=== PATIENT | male | born 1985 | race African-American/Black ===

== ENCOUNTER 2017-02-27 08:25 | Emergency (ER) | payer SELFPAY ==
[~2017-02-27] VITALS: Ht 170.2 cm; Wt 95.0 kg
[2017-02-27 08:44] VITALS: BP 215/129; PULSE 115; RESP 20; TEMP 99.1; O2SAT 98
[2017-02-27] MEDS ORDERED: IBUP1TAB7 PO (09:33)
[2017-02-27] MEDS ORDERED: OSEL75 PO (09:33)
--- NOTE | 2017-02-27 09:33 | PD ---
HPI . Flu Chief Complaint: Cold / Flu Symptoms Time Seen by Provider: 09:29 Travel History International Travel<30 days: No Contact w/Intl Traveler<30days: No Traveled to known affect area: No History of Present Illness HPI This patient presents with a chief complaint of the flu. He reports the onset of symptoms 2 days ago. He describes myalgias, fever, malaise, poor appetite, headache and nausea. He states that flu medications are helping. His significant other was diagnosed with the flu 2 days ago. He reports that his symptoms are progressively improving. [facility] Past Medical History Immunizations Current: Yes Social History Alcohol Use: Yes Tobacco Use: Yes Substance Use: Yes (SMOKES MELITON AND MARIJUANA) Allergies-Medications (Allergen,Severity, Reaction): Coded Allergies: No Known Allergies (Verified Adverse Reaction, Unknown, 02/27/17) Reported Meds & Prescriptions Reported Meds & Active Scripts Active No Active Prescriptions or Reported Medications Review of Systems Except as stated in HPI: all other systems reviewed are Neg General / Constitutional: Positive: Fever, Chills HENT: Positive: Headaches, Rhinorrhea, Congestion Gastrointestinal: Positive: Nausea, Loss of Appetite Physical Exam Narrative GENERAL: Patient is awake and alert and does not appear to be in any acute distress. SKIN: Warm and dry with no rash or lesions. HEAD: Normocephalic/atraumatic. EYES: No conjunctival injection or drainage. ENT: Clear rhinorrhea. NECK: Supple. No adenopathy. CARDIOVASCULAR: Heart sounds are normal. RESPIRATORY: Lungs are clear with full air movement throughout. MUSCULOSKELETAL: Atraumatic. NEUROLOGICAL: Nonfocal. PSYCHIATRIC: Appropriate mood and affect. Data Data Last Documented VS Vital Signs Date Time Temp Pulse Resp B/P (MAP) Pulse Ox O2 Delivery O2 Flow Rate FiO2 02/27/17 09:15 Room Air 02/27/17 08:44 99.1 115 20 215/129 [phone] MDM Medical Decision Making Medical Screen Exam Complete: Yes Emergency Medical Condition: Yes Differential Diagnosis Differential diagnosis includes but is not limited to influenza, upper respiratory infection, bronchitis, pneumonia Narrative Course This patient presents with cold symptoms. He has had a positive exposure to the flu. I will treat him for the flu. Diagnosis Primary Impression: Influenza Patient Instructions: General Instructions, Influenza (DC) Scripts Ibuprofen (Ibuprofen) 800 Mg Tab 800 MG PO Q8H Y for Pain/Inflammation, #60 TAB 0 Refills Prov: Lyndsey Hood MD 02/27/17 Oseltamivir (Tamiflu) 75 Mg Cap 75 MG PO BID for Mgmt Viral Infection for 5 Days, #10 CAP 0 Refills Prov: Lyndsey Hood MD 02/27/17 Disposition: 01 DISCHARGE HOME Condition: Stable Lyndsey Hood MD Feb 27, 2017 09:33
[2017-02-27 10:01] VITALS: BP 172/82
== END 2017-02-27 10:02 | disposition home or self-care (01) ==
LOC: NEPD 08:25
DX: J11.1 Influenza due to unidentified influenza virus with other respiratory manifestations (principal)
CPT/HCPCS: 99283

== ENCOUNTER 2017-05-30 03:57 | Inpatient (IN) | payer SELFPAY ==
[2017-05-30] VITALS (13 sets, daily range): BP systolic 161–217; BP diastolic 93–145; PULSE 88–128; RESP 17–19; TEMP 97.9–98.6; O2SAT 96–99
[~2017-05-30] VITALS: Ht 170.2 cm; Wt 96.5 kg
[~2017-05-30 03:57] MED LIST: IBUP1TAB7 PO; OSEL75 PO
[2017-05-30] MEDS ORDERED: IODIXANOL 320 MG/ML 10 ML VIAL (for Rad CT) IVCONTRAST ONE (03:58)
--- NOTE | 2017-05-30 04:37 | PD ---
HPI Chief Complaint: Respiratory Symptoms Time Seen by Provider: 04:12 Travel History International Travel<30 days: No Contact w/Intl Traveler<30days: No Traveled to known affect area: No History of Present Illness HPI Patient is a 31-year-old male who 10 days ago had a virus that turned out to be the flu. He was in the ER but not treated and discharged home patient says he recovered he felt fine. However in the last 4 days he suddenly has shortness of breath. It is made worse when he exerts himself or runs of steps. He is on no medication at this time and he has not seen another doctor for this illness. He has not taken any medication for this illness Patient's past medical history is negative however on arrival he is tachycardic to 120 at rest and he is hypertensive 219/117 denies chest pain he just has a right-sided lateral pain which has been constant since the 4 days of shortness of breath. The pain is vague ache inside the lateral right chest. He did not take Tamiflu or any antibiotics, has not seen another MD for this Illness [facility] Past Medical History Medical History: Denies Significant Hx Diminished Hearing: No Immunizations Current: Yes Tetanus Vaccination: < 5 Years Influenza Vaccination: No Past Surgical History Surgical History: No Previous Surgery Social History Alcohol Use: Yes (weekends) Tobacco Use: No Substance Use: Yes (SMOKES MELITON AND MARIJUANA) Allergies-Medications (Allergen,Severity, Reaction): Coded Allergies: No Known Allergies (Verified Adverse Reaction, Unknown, 05/30/17) Reported Meds & Prescriptions Reported Meds & Active Scripts Active Review of Systems Except as stated in HPI: all other systems reviewed are Neg Cardiovascular: Positive: Chest Pain or Discomfort, Tachycardia Respiratory: Positive: Shortness of Breath Physical Exam Narrative GENERAL: Patient is slightly diaphoretic he is tachycardic to 120 at rest SKIN: Warm and dry. Slightly diaphoretic on his forehead HEAD: Atraumatic. Normocephalic. EYES: Pupils equal and round. No scleral icterus. No injection or drainage. ENT: No nasal bleeding or discharge. Mucous membranes pink and moist. NECK: Trachea midline. No JVD. CARDIOVASCULAR: tachycardiac at rest 120 sinus tach RESPIRATORY: No accessory muscle use. Patient has diffuse wheezing in the right lung lower and middle lobe area ,, Left lung -->minimal expiratory wheeze in the left upper lung. MUSCULOSKELETAL: Extremities without clubbing, cyanosis, or edema. No obvious deformities. NEUROLOGICAL: Awake and alert. No obvious cranial nerve deficits. Motor grossly within normal limits. Five out of 5 muscle strength in the arms and legs. Normal speech. PSYCHIATRIC: Appropriate mood and affect; insight and judgment normal. Data Data Last Documented VS Orders Orders Complete Blood Count With Diff (05/30/17 04:34) Comprehensive Metabolic Panel (05/30/17 04:34) Troponin I (05/30/17 04:34) Lipase (05/30/17 04:34) D-Dimer (05/30/17 04:34) Ct Pulmonary Angiogram (05/30/17 ) Electrocardiogram (05/30/17 ) Sodium Chlor 0.9% 1000 Ml Inj (Ns 1000 M (05/30/17 05:45) Sodium Chlor 0.9% 1000 Ml Inj (Ns 1000 M (05/30/17 05:45) Iodixanol 320 Inj (Rad Ct) (Visipaque 32 (05/30/17 03:58) Levofloxacin 750 Mg Premix Inj (Levaquin (05/30/17 06:30) Ipratropium Neb (Atrovent Neb) (05/30/17 06:30) Labetalol Inj (Trandate Inj) (05/30/17 06:30) Aspirin Chew (Aspirin Chew) (05/30/17 06:30) Influenzae A/B Antigen (05/30/17 06:29) Vital Signs (Adult) Q4H (05/30/17 06:26) Senior Procurement Manager / Telemetry .CONTINUOUS (05/30/17 06:26) Diet Heart Healthy (05/30/17 Breakfast) Sodium Chloride 0.9% Flush (Ns Flush) (05/30/17 06:30) Sodium Chloride 0.9% Flush (Ns Flush) (05/30/17 09:00) Basic Metabolic Panel (Bmp) (05/31/17 06:00) Complete Blood Count With Diff (05/31/17 06:00) Creatine Kinase (Cpk) (05/30/17 10:30) Creatine Kinase (Cpk) (05/30/17 16:30) Troponin I (05/30/17 10:30) Troponin I (05/30/17 16:30) Electrocardiogram (05/30/17 10:30) Electrocardiogram (05/30/17 16:30) Case Management Consult (05/30/17 06:26) Naloxone Inj (Narcan Inj) (05/30/17 06:30) Inpatient Certification (05/30/17 ) Influenzae A/B Antigen (05/30/17 06:26) Labetalol Inj (Trandate Inj) (05/30/17 06:30) Methylprednisolone So Succ Inj (Solumedr (05/30/17 06:45) Oseltamivir (Tamiflu) (05/30/17 09:00) Albuterol-Ipratropium Neb (Duoneb Neb) (05/30/17 10:00) Albuterol-Ipratropium Neb (Duoneb Neb) (05/30/17 06:45) Admit Order (Ed Use Only) (05/30/17 06:37) CKMB (05/30/17 10:25) CKMB% (05/30/17 10:25) CKMB (05/30/17 16:16) CKMB% (05/30/17 16:16) Labs Laboratory Tests Test 05/30/17 04:30 White Blood Count 7.3 TH/MM3 Red Blood Count 5.00 MIL/MM3 Hemoglobin 14.8 GM/DL Hematocrit 43.5 % Mean Corpuscular Volume 87.0 FL Mean Corpuscular Hemoglobin 29.5 PG Mean Corpuscular Hemoglobin Concent 33.9 % Red Cell Distribution Width 13.7 % Platelet Count 376 TH/MM3 Mean Platelet Volume 8.0 FL Neutrophils (%) (Auto) 67.6 % Lymphocytes (%) (Auto) 21.9 % Monocytes (%) (Auto) 7.9 % Eosinophils (%) (Auto) 1.9 % Basophils (%) (Auto) 0.7 % Neutrophils # (Auto) 5.0 TH/MM3 Lymphocytes # (Auto) 1.6 TH/MM3 Monocytes # (Auto) 0.6 TH/MM3 Eosinophils # (Auto) 0.1 TH/MM3 Basophils # (Auto) 0.0 TH/MM3 CBC Comment DIFF FINAL Differential Comment D-Dimer Quantitative (PE/DVT) 1.86 MG/L FEU Blood Urea Nitrogen 23 MG/DL Creatinine 1.87 MG/DL Random Glucose 92 MG/DL Total Protein 7.7 GM/DL Albumin 3.6 GM/DL Calcium Level 8.9 MG/DL Alkaline Phosphatase 92 U/L Aspartate Amino Transf (AST/SGOT) 91 U/L Alanine Aminotransferase (ALT/SGPT) 106 U/L Total Bilirubin 0.4 MG/DL Sodium Level 141 MEQ/L Potassium Level 3.8 MEQ/L Chloride Level 105 MEQ/L Carbon Dioxide Level 25.3 MEQ/L Anion Gap 11 MEQ/L Estimat Glomerular Filtration Rate 52 ML/MIN Troponin I 0.56 NG/ML B-Type Natriuretic Peptide 499 PG/ML Lipase 150 U/L MDM Medical Decision Making Medical Screen Exam Complete: Yes Emergency Medical Condition: Yes Differential Diagnosis FLU vs PNA vs PE vs post Flu viral suprainfection of his right lung boateng vs PCP PNA vs Fungal infection other Narrative Course pt is tachycardic at rest and SOB and Right chest pain for 4 days < mother had DVT I CTA for PE and find severe ground glass like PNA of right lung and Levaquin and NEB and admit for close care of severe symptomatic PNA , Critical Care Narrative 30 minutes pulmonary management from severe post flu PNA and resp manangemnt Diagnosis Primary Impression: Pneumonia and influenza Admitting Information Admitting Physician Requests: Arsalan Mendosa MD May 30, 2017 04:37
[2017-05-30 04:59] LABS: BASOPHIL % 0.7 % (0.0-2.0); EOSINOPHIL # 0.1 TH/MM3 (0-0.4); EOSINOPHIL % 1.9 % (0.0-4.0); HEMATOCRIT 43.5 % (39.0-51.0); HEMOGLOBIN 14.8 GM/DL (13.0-17.0); LYMPH % 21.9 % (9.0-44.0); LYMPHOCYTE # 1.6 TH/MM3 (1.0-4.8); MEAN CORPUSCULAR HEMOGLOBIN 29.5 PG (27.0-34.0); MEAN CORPUSCULAR HGB CONC 33.9 % (32.0-36.0); MONO % 7.9 % (0.0-8.0); MONOCYTE # 0.6 TH/MM3 (0-0.9); NEUT % 67.6 % (16.0-70.0); PLATELET COUNT 376 TH/MM3 (150-450); RED CELL DISTRIBUTION WIDTH 13.7 % (11.6-17.2); WHITE BLOOD COUNT 7.3 TH/MM3 (4.0-11.0)
[2017-05-30 05:25] LABS: ALBUMIN 3.6 GM/DL (3.4-5.0); ALT (GPT) 106 U/L (12-78); AST (GOT) 91 U/L (15-37); BICARBONATE 25.3 MEQ/L (21.0-32.0); BLOOD UREA NITROGEN 23 MG/DL (7-18); CALCIUM 8.9 MG/DL (8.5-10.1); CHLORIDE 105 MEQ/L (98-107); CREATININE 1.87 MG/DL (0.60-1.30); GLOMERULAR FILTRATION RATE 52 ML/MIN (>89); GLUCOSE,RANDOM 92 MG/DL (74-106); SODIUM (NA) 141 MEQ/L (136-145)
[2017-05-30 05:29] LABS: ALKALINE PHOSPHATASE 92 U/L (45-117); TOTAL BILIRUBIN ADULT 0.4 MG/DL (0.2-1.0); TOTAL PROTEIN 7.7 GM/DL (6.4-8.2); TROPONIN I 0.56 NG/ML (0.02-0.05)
[2017-05-30] MEDS ORDERED: SODIUM CHLOR 0.9% 1000 ML INJ 1,000 ML IV ONE ×2 (05:45)
--- NOTE | 2017-05-30 06:08 | RADRPT ---
EXAM DATE/TIME: 05/30/2017 05:52 [place] COMPARISON: No previous studies available for comparison. INDICATIONS : Short of breath for four days. IV CONTRAST: 50 cc Visipaque (iodixanol) IV RADIATION DOSE: 21.50 CTDIvol (mGy) MEDICAL HISTORY : Hypertension. SURGICAL HISTORY : None. ENCOUNTER: Initial ACUITY: 4 - 6 days PAIN SCALE: 0/10 LOCATION: chest TECHNIQUE: Volumetric scanning of the chest was performed using a pulmonary embolism protocol MIP images were re constructed. Using automated exposure control and adjustment of the mA and/or kV according to patien t size, radiation dose was kept as low as reasonably achievable to obtain optimal diagnostic quality images. DICOM format image data is available electronically for review and comparison. Follow-up recommendations for detected pulmonary nodules are based at a minimum on nodule size and pa tient risk factors according to Fleischner Society Guidelines. FINDINGS: There are scattered bilateral groundglass infiltrates. There are no effusions. There is a small peric ardial effusion. There is no evidence for pulmonary embolism. 1.7 cm short axis subcarinal node, 1.4 cm right paratracheal lymph node, 9 mm pretracheal node subcentimeter short axis bilateral hilar lymp h nodes. Osseous structures are intact. CONCLUSION: 1. Bilateral groundglass infiltrates are noted bilaterally including several groundglass nodular opac ities measuring up to 2.6 cm and the right lung. Infectious etiology is favored. 2. No evidence for pulmonary embolism. 3. Small pericardial effusion. 4. Mediastinal and bilateral hilar adenopathy. 5. CT chest is recommended after appropriate clinical therapy in 3 months time to ensure resolution. Deni Guido MD on May 30, 2017 at 6:03 Board Certified Radiologist. This report was verified electronically.
[2017-05-30] MEDS ORDERED: NALOXONE HCL 0.4 MG/ML AMP IV PUSH PRN ×2 (06:30→10:45)
[2017-05-30] MEDS ORDERED: SODIUM CHLORIDE 0.9% FLUSH 10 ML FLUSH IV FLUSH PRN ×2 (06:30→10:45)
[2017-05-30] MEDS ORDERED: RESP: IPRATROPIUM 0.5 MG/2.5 ML NEB NEB ONE (06:30)
[2017-05-30] MEDS ORDERED: LABETALOL HCL 100 MG/20 ML VIAL IV PUSH ONE (06:30)
[2017-05-30] MEDS ORDERED: ASPIRIN 81 MG CHEW TAB CHEW ONE (06:30)
[2017-05-30] MEDS ORDERED: LEVOFLOXACIN 750 MG PREMIX INJ 150 ML IV ONE (06:30)
[2017-05-30] MEDS ORDERED: methylPREDNISolone SOD SUCC 125 MG/2 ML VIAL IV PUSH ONE (06:45)
[2017-05-30] MEDS ORDERED: RESP: ALBUTEROL 2.5 MG/IPRATROPIUM 0.5 MG NEB (PRN) NEB ×2 (06:45→10:45)
[2017-05-30] MEDS: RESP: ALBUTEROL 2.5 MG/IPRATROPIUM 0.5 MG NEB (SCH) NEB ×3 (07:59→21:36)
[2017-05-30] MEDS ORDERED: SODIUM CHLORIDE 0.9% FLUSH 10 ML FLUSH IV FLUSH SCH (09:00)
[2017-05-30] MEDS ORDERED: OSELTAMIVIR PHOSPHATE 75 MG CAP PO SCH (09:00)
[2017-05-30] MEDS ORDERED: MAGNESIUM HYDROXIDE SUSP 30 ML CUP PO PRN (10:45)
[2017-05-30] MEDS ORDERED: ONDANSETRON HCL 4 MG/2 ML VIAL IVP PRN (10:45)
[2017-05-30] MEDS ORDERED: ACETAMINOPHEN 325 MG TAB PO PRN (10:45)
[2017-05-30] MEDS ORDERED: LACTULOSE SYRUP 20 GM/30 ML CUP PO PRN (10:45)
[2017-05-30] MEDS ORDERED: SENNOSIDES 8.6 MG TAB PO PRN (10:45)
[2017-05-30] MEDS ORDERED: BISACODYL 10 MG SUPP RECTAL PRN (10:45)
[2017-05-30 11:02] LABS: TROPONIN I 0.54 NG/ML (0.02-0.05)
[2017-05-30] MEDS: ENOXAPARIN SODIUM 30 MG/0.3 ML SYRINGE SQ SCH (11:52)
[2017-05-30] MEDS ORDERED: LINEZOLID 600 MG PREMIX 300 ML IV SCH (13:00)
[2017-05-30] MEDS: LABETALOL HCL 100 MG/20 ML VIAL IV PUSH PRN ×4 (13:19→21:41)
--- NOTE | 2017-05-30 14:27 | EKG ---
Date Performed: 05/30/2017 Time Performed: 05:04:41 PTAGE: 31 years EKG: SINUS TACHYCARDIA LEFT ATRIAL ENLARGEMENT S1-S2-S3 PATTERN, CONSISTENT WITH PULMONARY DISEA SE, RVH, OR NORMAL VARIANT POSSIBLE RIGHT VENTRICULAR CONDUCTION DELAY POSSIBLE LEFT VENTRICULAR HYPE RTROPHY MODERATE T-WAVE ABNORMALITY, CONSIDER ANTERIOR ISCHEMIA ABNORMAL ECG PREVIOUS TRACING : 01/14/2015 04.17 Voltage has increased since prior tracing with nonspecific ST-T wave changes. Clinical correlation is recommended. DOCTOR: Ez Porras Interpretating Date/Time 05/30/2017 14:26:25
--- NOTE | 2017-05-30 14:56 | EKG ---
Date Performed: 05/30/2017 Time Performed: 10:22:21 PTAGE: 31 years EKG: Sinus rhythm LEFT ATRIAL ENLARGEMENT POSSIBLE RIGHT VENTRICULAR CONDUCTION DELAY POSSIBLE LEFT VENTRICULAR HYPERT ROPHY ST DEVIATION AND MODERATE T-WAVE ABNORMALITY, CONSIDER ANTERIOR ISCHEMIA ST DEVIATION AND MODER ATE T-WAVE ABNORMALITY, CONSIDER INFERIOR ISCHEMIA ABNORMAL ECG PREVIOUS TRACING : 05/30/2017 05.04 Since the prior tracing, there has been no significant barrera DOCTOR: Ez Porras Interpretating Date/Time 05/30/2017 14:48:49
--- NOTE | 2017-05-30 15:54 | HHI.HP ---
[facility] No Primary Care Physician Admission Diagnosis severe bronchitis infiltrate , pericardiatis Diagnoses: Chief Complaint: Shortness of breath Travel History International Travel<30 Days: No Contact w/Intl Traveler <30 Da: No Traveled to Known Affected Are: No Sepsis Criteria SIRS Criteria (2 or more): Heart rate over 90 History of Present Illness Mr. Horne is a pleasant 31 year old male with no significant medical history who presents to the emergency department today due to to worsening shortness of breath. For the last month or so, patient has been experiencing shortness of breath even with short distance walking. He also reports bilateral leg swelling and orthopnea. He cannot sleep in bed flat due to dyspnea. He denies any chest pain. However he has been experiencing right upper quadrant abdominal pain for the last 1 week or so. He reports cough with sung colored sputum production. No fever or chills. No nausea vomiting or diaphoresis. No nighttime sweats. No weight loss. Denies any changes in bowel or bladder habit. Further discussion reveals that he likely has had undiagnosed, untreated hypertension for a long time. He also admit to not eating well. Of note, patient had flu in February. CT PE study does indicate possibility of infectious etiology for nodular ground glass opacity. On arrival, HR 128, RR 18 , BP 208/145, 97% on room air. Review of Systems Except as stated in HPI: all other systems reviewed are Neg Past Family Social History Past Medical History Recent flu in Feb 2017 Undiagnosed hypertension Past Surgical History No previous surgery. Reported Medications Denies taking any medications on a regular basis. Allergies: Coded Allergies: No Known Allergies (Verified Adverse Reaction, Unknown, 05/30/17) Family History Mother - CHF. Social History Patient denies to me using any tobacco or illicit drugs. He admits to drinking on the weekend. He works in [employer]. Physical Exam Vital Signs Vital Signs Date Time Temp Pulse Resp B/P (MAP) Pulse Ox O2 Delivery O2 Flow Rate FiO2 05/30/17 12:45 05/30/17 12:13 98.3 88 17 161/93 (115) 97 Room Air 05/30/17 09:15 92 17 169/96 (120) 96 Room Air 05/30/17 07:25 92 19 168/97 (120) 96 Room Air 05/30/17 06:55 97 18 189/126 (147) 97 Room Air 05/30/17 04:21 121 18 217/129 (158) 97 Room Air 05/30/17 03:58 97.9 128 18 208/145 (166) 97 Room Air Physical Exam GENERAL: This is a well-nourished, well-developed patient, in no apparent distress. SKIN: No rashes, ecchymoses or lesions. Warm and dry. HEAD: Atraumatic. Normocephalic. No temporal or scalp tenderness. EYES: Pupils equal round and reactive. No injection or drainage. ENT: Nose without bleeding, purulent drainage or septal hematoma. Airway patent. NECK: Trachea midline. No lymphadenopathy. Supple, nontender, no meningeal signs. CARDIOVASCULAR: Regular rate and rhythm without murmurs, gallops, or rubs. No JVD. RESPIRATORY: Diminished sound in bibasilar areas. Breath sounds equal bilaterally. No wheezes, rales, or rhonchi. GASTROINTESTINAL: Abdomen soft, non-tender, nondistended. No guarding. MUSCULOSKELETAL: Extremities without clubbing, cyanosis. Low ext 1+ edema. NEUROLOGICAL: Awake and alert. Cranial nerves II through XII intact. No focal neurological deficits. Normal speech. Laboratory Laboratory Tests Test 05/30/17 04:30 05/30/17 10:25 White Blood Count 7.3 Red Blood Count 5.00 Hemoglobin 14.8 Hematocrit 43.5 Mean Corpuscular Volume 87.0 Mean Corpuscular Hemoglobin 29.5 Mean Corpuscular Hemoglobin Concent 33.9 Red Cell Distribution Width 13.7 Platelet Count 376 Mean Platelet Volume 8.0 Neutrophils (%) (Auto) 67.6 Lymphocytes (%) (Auto) 21.9 Monocytes (%) (Auto) 7.9 Eosinophils (%) (Auto) 1.9 Basophils (%) (Auto) 0.7 Neutrophils # (Auto) 5.0 Lymphocytes # (Auto) 1.6 Monocytes # (Auto) 0.6 Eosinophils # (Auto) 0.1 Basophils # (Auto) 0.0 CBC Comment DIFF FINAL Differential Comment D-Dimer Quantitative (PE/DVT) 1.86 Blood Urea Nitrogen 23 Creatinine 1.87 Random Glucose 92 Total Protein 7.7 Albumin 3.6 Calcium Level 8.9 Alkaline Phosphatase 92 Aspartate Amino Transf (AST/SGOT) 91 Alanine Aminotransferase (ALT/SGPT) 106 Total Bilirubin 0.4 Sodium Level 141 Potassium Level 3.8 Chloride Level 105 Carbon Dioxide Level 25.3 Anion Gap 11 Estimat Glomerular Filtration Rate 52 Troponin I 0.56 0.54 Lipase 150 Total Creatine Kinase 403 Creatine Kinase MB 3.1 Creatine Kinase MB % 0.8 Date/Time Source Procedure Growth Status 05/30/17 07:20 Nasal Aspirate Influenza Types A,B Antigen (PARK) - Final NEGATIVE FOR FLU A AND B ANTIGEN.... Complete Result Diagram: 05/30/17 0430 05/30/17 [address] Angiography 05/30/17 0000 Signed Impressions: Service Date/Time: May 05:52 - CONCLUSION: 1. Bilateral groundglass infiltrates are noted bilaterally including several groundglass nodular opacities measuring up to 2.6 cm and the right lung. Infectious etiology is favored. 2. No evidence for pulmonary embolism. 3. Small pericardial effusion. 4. Mediastinal and bilateral hilar adenopathy. 5. CT chest is recommended after appropriate clinical therapy in 3 months time to ensure resolution. Deni Guido MD Capmarai VTE Risk Assessment Caprini VTE Risk Assessment: Mod/High Risk (score >= 2) Caprini Risk Assessment Model Point Value = 1 Point Value = 2 Point Value = 3 Point Value = 5 Age 41-60 Minor surgery BMI > 25 kg/m2 Swollen legs Varicose veins or History of unexplained or recurrent spontaneous Oral contraceptives or hormone replacement Sepsis (< 1 month) Serious lung disease, including pneumonia (< 1 month) Abnormal pulmonary function Acute myocardial infarction Congestive heart failure (< 1 month) History of inflammatory bowel disease Medical patient at bed rest Age 61-74 Arthroscopic surgery Major open surgery (> 45 min) Laparoscopic surgery (> 45 min) Malignancy Confined to bed (> 72 hours) Immobilizing plaster cast Central venous access Age >= 75 History of VTE Family history of VTE Factor V Leiden Prothrombin [id number] Lupus anticoagulant Anticardiolipin antibodies Elevated serum homocysteine Heparin-induced thrombocytopenia Other congenital or acquired thrombophilia Stroke (< 1 month) Elective arthroplasty Hip, pelvis, or leg fracture Acute spinal cord injury (< 1 month) Prophylaxis Regimen Total Risk Factor Score Risk Level Prophylaxis Regimen 0-1 Low Early ambulation 2 Moderate Order ONE of the following: *Sequential Compression Device (SCD) *Heparin 5000 units SQ BID 3-4 Higher Order ONE of the following medications: *Heparin 5000 units SQ TID *Enoxaparin/Lovenox 40 mg SQ daily (WT < 150 kg, CrCl > 30 mL/min) *Enoxaparin/Lovenox 30 mg SQ daily (WT < 150 kg, CrCl > 10-29 mL/min) *Enoxaparin/Lovenox 30 mg SQ BID (WT < 150 kg, CrCl > 30 mL/min) AND/OR *Sequential Compression Device (SCD) 5 or more Highest Order ONE of the following medications: *Heparin 5000 units SQ TID (Preferred with Epidurals) *Enoxaparin/Lovenox 40 mg SQ daily (WT < 150 kg, CrCl > 30 mL/min) *Enoxaparin/Lovenox 30 mg SQ daily (WT < 150 kg, CrCl > 10-29 mL/min) *Enoxaparin/Lovenox 30 mg SQ BID (WT < 150 kg, CrCl > 30 mL/min) AND *Sequential Compression Device (SCD) Assessment and Plan Problem List: (1) CHF (congestive heart failure) ICD Code: I50.9 - Heart failure, unspecified (2) NSTEMI (non-ST elevated myocardial infarction) ICD Code: I21.4 - Non-ST elevation (NSTEMI) myocardial infarction (3) Acute kidney injury ICD Code: N17.9 - Acute kidney failure, unspecified (4) Hypertension ICD Code: I10 - Essential (primary) hypertension (5) Pneumonia ICD Code: J18.9 - Pneumonia, unspecified organism Assessment and Plan Mr. Horne is a pleasant 31-year-old male with no significant medical history presents to the emergency department due to one-month long shortness of breath, orthopnea, leg swelling. He complains of cough with sung sputum production. No fever or chills. No night sweats, weight loss. CT PE study indicates groundglass opacity with nodular density likely infectious etiology. Patient's clinical symptoms are consistent with new onset congestive heart failure. New onset congestive heart failure likely systolic. NSTEMI type II - likely due to dyspnea which is due to CHF, acute kidney injury. Troponins are 0.56, 0.54, 0.50. - BNP added later - BNP is 499. - Will consult cardiology. - Start Diuresis with Lasix 40mg IV BID - Will consider beta semaj, ABEL inhibitor once patient gets diuresis. - In the acute heart failure setting, starting Beta semaj must be done with caution. - We will also hold off initiating ABEL inhibitory due to BETSY. - Echocardiogram pending. - We may consider Carvedilol 6.25mg BID and Lisinopril 10mg Qday when plausible to start. Hypertension - Start amlodipine 5 mg daily. Titrate up as needed. - Lasix 40mg IV BID will also help with BP. Acute kidney injury - Creatinine 1.87 on admission. Previously 1.0 in 2014. - Possibly due to hypertensive nephropathy. Although Cardiorenal syndrome is a possibility. - With diuresis we may expect better perfusion to the kidneys. - If BETSY is not improved by 05/31/2017, consider renal US and nephrology consult. Possible pneumonia - CT images reviewed by me - shows ground glass opacity. Left nodular density appreciated. - Will d/c Tamiflu. Patient's flu screen is negative. He had Flu in 2016 - Initially, MRSA pneumonia post flu was suspected. CAP appears to be more likely. D/C Zyvox. - Will continue Levaquin 750 Qday - pharmacy to adjust dose. - DuoNeb PRN. Supplemental O2 PRN. Full code. Lovenox. Telemetry. Physician Certification 2 Midnight Certification Type: Admission for Inpatient Services Order for Inpatient Services The services are ordered in accordance with Medicare regulations or non- Medicare payer requirements, as applicable. In the case of services not specified as inpatient-only, they are appropriately provided as inpatient services in accordance with the 2-midnight benchmark. Estimated LOS (days): 3 days is the estimated time the patient will need to remain in the hospital, assuming treatment plan goals are met and no additional complications. Post-Hospital Plan: Home Genesis Hendrickson DO May 30, 2017 15:54
[2017-05-30] MEDS ORDERED: amLODIPine BESYLATE 5 MG TAB PO ONE (16:00)
[2017-05-30 17:11] LABS: TROPONIN I 0.5 NG/ML (0.02-0.05)
[2017-05-30] MEDS: FUROSEMIDE 40 MG/4 ML VIAL IV PUSH SCH (18:07)
[2017-05-30] MEDS: ATORVASTATIN 40 MG TAB PO SCH (20:57)
[2017-05-30] MEDS: SODIUM CHLORIDE 0.9% FLUSH 10 ML FLUSH IV FLUSH SCH (20:57)
[2017-05-31] VITALS (25 sets, daily range): BP systolic 149–178; BP diastolic 92–112; PULSE 82–99; RESP 16–20; TEMP 96.9–98.1; O2SAT 94–100
[2017-05-31] MEDS: RESP: ALBUTEROL 2.5 MG/IPRATROPIUM 0.5 MG NEB (SCH) NEB ×4 (04:02→21:09)
[2017-05-31] MEDS: LABETALOL HCL 100 MG/20 ML VIAL IV PUSH PRN ×5 (04:17→11:54)
--- NOTE | 2017-05-31 05:47 | MB ---
cc: DIXIE BERRIOS M.D. DATE OF CONSULTATION 05/30/2017 HISTORY Evelio is a very pleasant 31-year-old young man who presents to the ER with chief complaint of chest pain, associated with shortness of breath. Per the ER chart he was noted to have had the "flu" 10 days prior to admission. At that time he had tachycardia with a heart rate of 120, blood pressure is 219/117 in the ER. Otherwise he denies any fevers, chills, cough, GI or bleeding, paroxysmal nocturnal dyspnea, orthopnea, syncope or dizziness. PAST MEDICAL HISTORY As per History of Present Illness. SOCIAL HISTORY He admits to drinking alcohol and smoking Sweta and marijuana. Denies tobacco use. ALLERGIES None. MEDICATIONS IN THE HOSPITAL 1. Amlodipine 5 mg daily. 2. Levofloxacin 750 daily. 3. Aspirin 81 mg daily. 4. Atorvastatin 40 mg at bedtime. 5. Lasix 40 IV b.i.d. 6. Lovenox 30 subcu q.24 hours. PHYSICAL EXAMINATION VITAL SIGNS: Currently blood pressure 163/118, pulse 95, respiratory rate 18, temperature 98.2, sats 98% on room air. GENERAL: He is alert and oriented x 3, in no acute distress. NECK: Supple. No JVD, no bruit. CARDIOVASCULAR: S1, S2. No murmurs, rubs, or gallops. LUNGS: Clear to auscultation bilaterally. ABDOMEN: Soft, nontender, nondistended with positive bowel sounds. EXTREMITIES: No lower extremity edema. LABORATORY DATA White count 7.3, hemoglobin 14.8, hematocrit 43.5, platelet count 376. INR not done. Sodium 141, potassium 3.8, chlorine 105, bicarb 25.3, BUN 23, creatinine 1.87, AST of 91, ALT 106. Troponin is 0.56 followed by 0.54 and 0.50. BNP is 499. CT ANGIO OF THE CHEST I cannot pull the CT report from the computer. EKG On admission shows sinus tachycardia at 117 beats per minute, nonspecific ST-T wave changes. Repeat EKG showed normal sinus rhythm at 93 beats per minute, T-wave inversion in V3, V2, V4. DIAGNOSES 1. Non-STEMI. 2. Hypertension. 3. Acute renal failure. 4. Tobacco abuse. 5. Polysubstance abuse. 6. Decompensated congestive heart failure. DISCUSSION Clinically, I suspect that his troponin elevation is secondary to severe hypertension. However, I cannot completely rule out a primary obstructive event causing his ischemia. Obviously he has a high-risk presentation due to the acute renal failure, decompensated congestive heart failure, severe hypertension, non-STEMI. At this point in time we will reevaluate in labs in the a.m. If his creatinine is normal, would consider doing a left heart catheterization. Also get a urine drug screen. Agree with aspirin 81 mg daily, atorvastatin 40 at bedtime. MD LUANA Vasquez/GUANAKITO /7:14 PM /5:30 AM
[2017-05-31 07:48] LABS: AUTOMATED NEUTROPHIL # 12.2 TH/MM3 (1.8-7.7); BASOPHIL % 0.1 % (0.0-2.0); LYMPH % 7.2 % (9.0-44.0); MEAN CELL VOLUME 88.2 FL (80.0-100.0); MEAN CORPUSCULAR HEMOGLOBIN 29.5 PG (27.0-34.0); MEAN CORPUSCULAR HGB CONC 33.4 % (32.0-36.0); MEAN PLATELET VOLUME 8.3 FL (7.0-11.0); MONO % 8.5 % (0.0-8.0); MONOCYTE # 1.2 TH/MM3 (0-0.9); NEUT % 84.2 % (16.0-70.0); PLATELET COUNT 305 TH/MM3 (150-450); RED BLOOD COUNT 4.42 MIL/MM3 (4.50-5.90); RED CELL DISTRIBUTION WIDTH 14.3 % (11.6-17.2); WHITE BLOOD COUNT 14.5 TH/MM3 (4.0-11.0)
[2017-05-31 07:58] LABS: BICARBONATE 23.8 MEQ/L (21.0-32.0); BLOOD UREA NITROGEN 22 MG/DL (7-18); CALCIUM 8.6 MG/DL (8.5-10.1); CHLORIDE 108 MEQ/L (98-107); CREATININE 1.56 MG/DL (0.60-1.30); GLOMERULAR FILTRATION RATE 64 ML/MIN (>89); GLUCOSE,RANDOM 98 MG/DL (74-106); SODIUM (NA) 142 MEQ/L (136-145)
[2017-05-31 07:59] LABS: CHOLESTEROL 116 MG/DL (120-200); TRIGLYCERIDES 73 MG/DL (42-150)
[2017-05-31 08:02] LABS: CHOLESTEROL/ HDL RATIO 4.01 RATIO; HDL CHOLESTEROL 28.9 MG/DL (40.0-60.0); LDL CHOLESTEROL 73 MG/DL (0-99)
[2017-05-31] MEDS: FUROSEMIDE 40 MG/4 ML VIAL IV PUSH SCH ×2 (08:05→17:19)
[2017-05-31] MEDS: amLODIPine BESYLATE 5 MG TAB PO SCH (08:05)
[2017-05-31] MEDS: ASPIRIN EC 81 MG TABEC PO SCH (08:05)
[2017-05-31] MEDS: LEVOFLOXACIN 750 MG TAB PO SCH (08:05)
[2017-05-31] MEDS: SODIUM CHLORIDE 0.9% FLUSH 10 ML FLUSH IV FLUSH SCH ×2 (08:06→20:42)
--- NOTE | 2017-05-31 08:50 | RADRPT ---
EXAM DATE/TIME: 05/31/2017 08:17 [facility] COMPARISON: No previous studies available for comparison. INDICATIONS : Right upper quadrant pain. MEDICAL HISTORY : Right upper quadrant pain. SOB. Undiagnosed hypertension. SURGICAL HISTORY : None. ENCOUNTER: Initial ACUITY: 1 day PAIN SCORE: 3/10 LOCATION: Right upper quadrant MEASUREMENTS: LIVER: 17.8 cm length COMMON DUCT: 3 mm RIGHT KIDNEY: 10.6 x 5.6 x 3.8 cm FINDINGS: LIVER: Mild diffuse increased hepatic echogenicity without volume loss, focal mass or intrahepatic ductal di latation. COMMON DUCT: No intraluminal mass or stone visualized. GALLBLADDER: Contains no stones, demonstrates no wall thickening or pericholecystic fluid. PANCREAS: The visualized portions are within normal limits. RIGHT KIDNEY: No evidence of hydronephrosis, stone, or mass. CONCLUSION: 1. Mild diffusely increased hepatic echogenicity without volume loss consistent with hepatic steatosi s versus medical liver disease. 2. Otherwise, unremarkable right quadrant ultrasound examination. Specifically, no cholelithiasis or evidence for cholecystitis. Monroe Boo MD on May 31, 2017 at 8:45 Board Certified Radiologist. This report was verified electronically.
--- NOTE | 2017-05-31 10:00 | PD.CARD.PN ---
Subjective Subjective Remarks alert in nad Objective Medications Current Medications Medications (Trade) Dose Ordered Sig/Mary Route Start Time Stop Time Status Last Admin (Trandate Inj) 10 mg Q20M PRN IV PUSH 05/30/17 06:30 05/31/17 06:13 (Duoneb Neb) 1 ampule Q6HR NEB NEB 05/30/17 10:00 05/31/17 08:54 (NS Flush) 2 ml UNSCH PRN IV FLUSH 05/30/17 10:45 (NS Flush) 2 ml BID IV FLUSH 05/30/17 21:00 05/31/17 08:06 (Tylenol) 650 mg Q4H PRN PO 05/30/17 10:45 (Zofran Inj) 4 mg Q6H PRN IVP 05/30/17 10:45 (Lovenox Inj) 30 mg Q24H SQ 05/30/17 12:00 05/30/17 11:52 (Narcan Inj) 0.4 mg UNSCH PRN IV PUSH 05/30/17 10:45 (Milk Of Magnesia Liq) 30 ml Q12H PRN PO 05/30/17 10:45 (Senokot) 17.2 mg Q12H PRN PO 05/30/17 10:45 (Dulcolax Supp) 10 mg DAILY PRN RECTAL 05/30/17 10:45 (Lactulose Liq) 30 ml DAILY PRN PO 05/30/17 10:45 (Levaquin) 750 mg DAILY PO 05/31/17 09:00 06/07/17 08:59 05/31/17 08:05 (Duoneb Neb) 1 ampule Q4HR NEB PRN NEB 05/30/17 10:45 (Lasix Inj) 40 mg BID@ IV PUSH 05/30/17 18:00 05/31/17 08:05 (Norvasc) 5 mg DAILY PO 05/31/17 09:00 05/31/17 08:05 (Ecotrin Ec) 81 mg DAILY PO 05/31/17 09:00 05/31/17 08:05 (Lipitor) 40 mg HS PO 05/30/17 21:00 05/30/17 20:57 Vital Signs / I&O Vital Signs Date Time Temp Pulse Resp B/P (MAP) Pulse Ox O2 Delivery O2 Flow Rate FiO2 2/16/18 08:55 96 21 05/31/17 08:15 97.9 90 18 161/92 (115) 99 05/31/17 08:04 89 05/31/17 06:13 172/105 (127) 05/31/17 05:54 171/104 (126) 05/31/17 04:00 97.2 90 18 176/112 (133) 94 05/31/17 04:00 95 05/31/17 01:52 161/109 (126) 05/31/17 00:00 92 05/31/17 00:00 96.9 97 16 159/108 (125) 98 05/30/17 21:40 164/102 (122) 05/30/17 21:37 98 21 05/30/17 21:00 177/122 (140) 05/30/17 20:00 98.3 99 18 169/121 (137) 99 05/30/17 20:00 94 05/30/17 15:45 98.2 95 18 163/118 (133) 98 05/30/17 15:00 90 05/30/17 13:15 98.6 96 18 169/126 (140) 96 05/30/17 12:45 05/30/17 12:13 98.3 88 17 161/93 (115) 97 Room Air I/O 05/30/17 05/30/17 05/30/17 05/31/17 05/31/17 05/31/17 07:00 15:00 23:00 07:00 15:00 23:00 Intake Total 2150 ml 240 ml 240 ml Output Total 0 ml 2500 ml Balance 2150 ml 240 ml -2260 ml Intake Oral 240 ml 240 ml IV Total 2150 ml Output Urine Total 0 ml 2500 ml # Voids 1 0 # Bowel Movements 0 0 Physical Exam GENERAL: SKIN: Warm and dry. HEAD: Normocephalic. EYES: No scleral icterus. No injection or drainage. NECK: Supple, trachea midline. No JVD or lymphadenopathy. CARDIOVASCULAR: Regular rate and rhythm without murmurs, gallops, or rubs. RESPIRATORY: Breath sounds equal bilaterally. No accessory muscle use. GASTROINTESTINAL: Abdomen soft, non-tender, nondistended. MUSCULOSKELETAL: No cyanosis, or edema. BACK: Nontender without obvious deformity. No CVA tenderness. Laboratory Laboratory Tests Test 05/30/17 10:25 05/30/17 16:16 05/30/17 20:25 05/31/17 06:35 Total Creatine Kinase 403 U/L 358 U/L Creatine Kinase MB 3.1 NG/ML 3.2 NG/ML Creatine Kinase MB % 0.8 % 0.9 % Troponin I 0.54 NG/ML 0.50 NG/ML Urine Opiates Screen NEG Urine Barbiturates Screen NEG Urine Amphetamines Screen NEG Urine Benzodiazepines Screen NEG Urine Cocaine Screen NEG Urine Cannabinoids Screen NEG White Blood Count 14.5 TH/MM3 Red Blood Count 4.42 MIL/MM3 Hemoglobin 13.0 GM/DL Hematocrit 39.0 % Mean Corpuscular Volume 88.2 FL Mean Corpuscular Hemoglobin 29.5 PG Mean Corpuscular Hemoglobin Concent 33.4 % Red Cell Distribution Width 14.3 % Platelet Count 305 TH/MM3 Mean Platelet Volume 8.3 FL Neutrophils (%) (Auto) 84.2 % Lymphocytes (%) (Auto) 7.2 % Monocytes (%) (Auto) 8.5 % Eosinophils (%) (Auto) 0.0 % Basophils (%) (Auto) 0.1 % Neutrophils # (Auto) 12.2 TH/MM3 Lymphocytes # (Auto) 1.0 TH/MM3 Monocytes # (Auto) 1.2 TH/MM3 Eosinophils # (Auto) 0.0 TH/MM3 Basophils # (Auto) 0.0 TH/MM3 CBC Comment DIFF FINAL Differential Comment Blood Urea Nitrogen 22 MG/DL Creatinine 1.56 MG/DL Random Glucose 98 MG/DL Calcium Level 8.6 MG/DL Magnesium Level 2.0 MG/DL Sodium Level 142 MEQ/L Potassium Level 3.7 MEQ/L Chloride Level 108 MEQ/L Carbon Dioxide Level 23.8 MEQ/L Anion Gap 10 MEQ/L Estimat Glomerular Filtration Rate 64 ML/MIN B-Type Natriuretic Peptide 847 PG/ML Triglycerides Level 73 MG/DL Cholesterol Level 116 MG/DL LDL Cholesterol 73 MG/DL HDL Cholesterol 28.9 MG/DL Cholesterol/HDL Ratio 4.01 RATIO Imaging Last 24 hours Impressions Gall Bladder Ultrasound 05/31/17 0000 Signed Impressions: Service Date/Time: Wednesday, May 31, 2017 08:17 - CONCLUSION: 1. Mild diffusely increased hepatic echogenicity without volume loss consistent with hepatic steatosis versus medical liver disease. 2. Otherwise, unremarkable right quadrant ultrasound examination. Specifically, no cholelithiasis or evidence for cholecystitis. Monroe Boo MD Assessment and Plan Problem List: (1) CHF (congestive heart failure) ICD Codes: I50.9 - Heart failure, unspecified (2) Hypertension ICD Codes: I10 - Essential (primary) hypertension (3) Pneumonia ICD Codes: J18.9 - Pneumonia, unspecified organism (4) NSTEMI (non-ST elevated myocardial infarction) ICD Codes: I21.4 - Non-ST elevation (NSTEMI) myocardial infarction (5) Acute kidney injury ICD Codes: N17.9 - Acute kidney failure, unspecified Assessment and Plan 1.) NSTEMI - [facility] if/when renal function stabilize, continue medical management Dax Spain MD May 31, 2017 10:00
[2017-05-31] MEDS ORDERED: ACETAMINOPHEN 1000 MG/100 ML 100 ML IV ONE (11:03)
[2017-05-31] MEDS ORDERED: MIDAZOLAM HCL 2 MG/2 ML VIAL ONE (11:09)
[2017-05-31] MEDS: ENOXAPARIN SODIUM 30 MG/0.3 ML SYRINGE SQ SCH (11:41)
--- NOTE | 2017-05-31 14:34 | RADRPT ---
EXAM DATE/TIME: 05/31/2017 13:44 [facility] COMPARISON: US ABDOMEN - GALLBLADDER, May 31, 2017, 8:17. INDICATIONS : Renal failure. MEDICAL HISTORY : Alcohol use. Substance use. SURGICAL HISTORY : ENCOUNTER: Initial ACUITY: 1 day PAIN SCORE: 0/10 LOCATION: Bilateral flank MEASUREMENTS: RIGHT KIDNEY: 10.6 x 4.5 x 3.6 cm LEFT KIDNEY: 10.4 x 4.2 x 5.2 cm FINDINGS: RIGHT KIDNEY: Renal cortex is normal in thickness and echotexture. No hydronephrosis, stone, or mass. LEFT KIDNEY: Renal cortex is normal in thickness and echotexture. No hydronephrosis, stone, or mass. BLADDER: Within normal limits given the degree of distension. CONCLUSION: 1. No findings to indicate renal obstruction identified. 2. The echogenicity of the kidneys appears within normal limits bilaterally. Manuel Dimas MD on May 31, 2017 at 14:31 Board Certified Radiologist. This report was verified electronically.
--- NOTE | 2017-05-31 15:13 | PD.CONS ---
HPI Service Nephrology Consult Requested By Dr. Kruse Reason for Consult BETSY with planned heart cath Primary Care Physician No Primary Care Physician History of Present Illness Patient is a very pleasant 31 year old male with no significant medical history who presents to the emergency department today due to to worsening shortness of breath. For the last month or so, patient has been experiencing shortness of breath even with short distance walking. He also reports bilateral leg swelling and orthopnea. He cannot sleep in bed flat due to dyspnea. CT does indicate possibility of infectious etiology for nodular ground glass opacity and patient is on Levaquin. Nephrology is consulted for BETSY with creatinine of 1.56 and GFR 64ml/min with a planned heart cath. Patient does not have a past medical history of CKD. He does have a family member on Dialysis. Patient is noted to quite HTN and likely this has been undiagnosed. (Liz Jiang) Review of Systems Respiratory: COMPLAINS OF: Shortness of breath Cardiovascular: COMPLAINS OF: Orthopnea Gastrointestinal: COMPLAINS OF: Abdominal pain (Liz Jiang) Past Family Social History Allergies: Coded Allergies: No Known Allergies (Verified Adverse Reaction, Unknown, 05/30/17) Past Medical History HTN - undiagnosed Past Surgical History No previous surgeries Active Ordered Medications Current Medications Medications (Trade) Dose Ordered Sig/Mary Route Start Time Stop Time Status Last Admin (Trandate Inj) 10 mg Q20M PRN IV PUSH 05/30/17 06:30 05/31/17 11:54 (Duoneb Neb) 1 ampule Q6HR NEB NEB 05/30/17 10:00 05/31/17 08:54 (NS Flush) 2 ml UNSCH PRN IV FLUSH 05/30/17 10:45 (NS Flush) 2 ml BID IV FLUSH 05/30/17 21:00 05/31/17 08:06 (Tylenol) 650 mg Q4H PRN PO 05/30/17 10:45 (Zofran Inj) 4 mg Q6H PRN IVP 05/30/17 10:45 (Lovenox Inj) 30 mg Q24H SQ 05/30/17 12:00 05/31/17 11:41 (Narcan Inj) 0.4 mg UNSCH PRN IV PUSH 05/30/17 10:45 (Milk Of Magnesia Liq) 30 ml Q12H PRN PO 05/30/17 10:45 (Senokot) 17.2 mg Q12H PRN PO 05/30/17 10:45 (Dulcolax Supp) 10 mg DAILY PRN RECTAL 05/30/17 10:45 (Lactulose Liq) 30 ml DAILY PRN PO 05/30/17 10:45 (Levaquin) 750 mg DAILY PO 05/31/17 09:00 06/07/17 08:59 05/31/17 08:05 (Duoneb Neb) 1 ampule Q4HR NEB PRN NEB 05/30/17 10:45 (Lasix Inj) 40 mg BID@ IV PUSH 05/30/17 18:00 05/31/17 08:05 (Norvasc) 5 mg DAILY PO 05/31/17 09:00 05/31/17 08:05 (Ecotrin Ec) 81 mg DAILY PO 05/31/17 09:00 05/31/17 08:05 (Lipitor) 40 mg HS PO 05/30/17 21:00 05/30/17 20:57 Family History Mother with CHF Grandfather ESRD on dialysis Social History Denies smoking Weekend only ETOH use in moderation Lives with family Works as printing cyber operator (Liz Jiang) Physical Exam Vital Signs Vital Signs Date Time Temp Pulse Resp B/P (MAP) Pulse Ox O2 Delivery O2 Flow Rate FiO2 05/31/17 13:41 151/99 (116) 05/31/17 13:00 92 05/31/17 12:30 160/112 (128) 05/31/17 12:00 88 05/31/17 11:57 97.1 92 18 178/102 (127) 99 05/31/17 11:00 Room Air 05/31/17 11:00 92 05/31/17 10:00 92 05/31/17 09:00 82 05/31/17 08:55 96 21 05/31/17 08:15 97.9 90 18 161/92 (115) 99 05/31/17 08:04 89 05/31/17 07:00 88 05/31/17 06:13 172/105 (127) 05/31/17 05:54 171/104 (126) 05/31/17 04:00 97.2 90 18 176/112 (133) 94 05/31/17 04:00 95 05/31/17 01:52 161/109 (126) 05/31/17 00:00 92 05/31/17 00:00 96.9 97 16 159/108 (125) 98 05/30/17 21:40 164/102 (122) 05/30/17 21:37 98 21 05/30/17 21:00 177/122 (140) 05/30/17 20:00 98.3 99 18 169/121 (137) 99 05/30/17 20:00 94 05/30/17 15:45 98.2 95 18 163/118 (133) 98 05/30/17 15:00 90 Physical Exam GENERAL: Alert and oriented SKIN: Warm and dry. HEAD: Normocephalic. EYES: No scleral icterus. No injection or drainage. NECK: Supple, trachea midline. No JVD or lymphadenopathy. CARDIOVASCULAR: Regular rate and rhythm without murmurs, gallops, or rubs. RESPIRATORY: Breath sounds equal bilaterally diminished. No accessory muscle use. GASTROINTESTINAL: Abdomen soft and nondistended. Tenderness noted in right upper quadrant MUSCULOSKELETAL: No cyanosis, or edema. BACK: Nontender without obvious deformity. No CVA tenderness. Laboratory Laboratory Tests Test 05/30/17 16:16 05/30/17 20:25 05/31/17 06:35 Total Creatine Kinase 358 Creatine Kinase MB 3.2 Creatine Kinase MB % 0.9 Troponin I 0.50 Urine Opiates Screen NEG Urine Barbiturates Screen NEG Urine Amphetamines Screen NEG Urine Benzodiazepines Screen NEG Urine Cocaine Screen NEG Urine Cannabinoids Screen NEG White Blood Count 14.5 Red Blood Count 4.42 Hemoglobin 13.0 Hematocrit 39.0 Mean Corpuscular Volume 88.2 Mean Corpuscular Hemoglobin 29.5 Mean Corpuscular Hemoglobin Concent 33.4 Red Cell Distribution Width 14.3 Platelet Count 305 Mean Platelet Volume 8.3 Neutrophils (%) (Auto) 84.2 Lymphocytes (%) (Auto) 7.2 Monocytes (%) (Auto) 8.5 Eosinophils (%) (Auto) 0.0 Basophils (%) (Auto) 0.1 Neutrophils # (Auto) 12.2 Lymphocytes # (Auto) 1.0 Monocytes # (Auto) 1.2 Eosinophils # (Auto) 0.0 Basophils # (Auto) 0.0 CBC Comment DIFF FINAL Differential Comment Blood Urea Nitrogen 22 Creatinine 1.56 Random Glucose 98 Calcium Level 8.6 Magnesium Level 2.0 Sodium Level 142 Potassium Level 3.7 Chloride Level 108 Carbon Dioxide Level 23.8 Anion Gap 10 Estimat Glomerular Filtration Rate 64 B-Type Natriuretic Peptide 847 Triglycerides Level 73 Cholesterol Level 116 LDL Cholesterol 73 HDL Cholesterol 28.9 Cholesterol/HDL Ratio 4.01 HIV (1&2) Antibody NEGATIVE Date/Time Source Procedure Growth Status 05/30/17 07:20 Nasal Aspirate Influenza Types A,B Antigen (PARK) - Final NEGATIVE FOR FLU A AND B ANTIGEN.... Complete (Liz Jiang) Result Diagram: 05/31/17 0635 05/31/17 0635 Imaging Last Impressions Renal Ultrasound 05/31/17 0000 Signed Impressions: Service Date/Time: Wednesday, May 31, 2017 13:44 - CONCLUSION: 1. No findings to indicate renal obstruction identified. 2. The echogenicity of the kidneys appears within normal limits bilaterally. Manuel Dimas MD Gall Bladder Ultrasound 05/31/17 0000 Signed Impressions: Service Date/Time: Wednesday, May 31, 2017 08:17 - CONCLUSION: 1. Mild diffusely increased hepatic echogenicity without volume loss consistent with hepatic steatosis versus medical liver disease. 2. Otherwise, unremarkable right quadrant ultrasound examination. Specifically, no cholelithiasis or evidence for cholecystitis. Monroe Boo MD CT Angiography 05/30/17 0000 Signed Impressions: Service Date/Time: May 05:52 - CONCLUSION: 1. Bilateral groundglass infiltrates are noted bilaterally including several groundglass nodular opacities measuring up to 2.6 cm and the right lung. Infectious etiology is favored. 2. No evidence for pulmonary embolism. 3. Small pericardial effusion. 4. Mediastinal and bilateral hilar adenopathy. 5. CT chest is recommended after appropriate clinical therapy in 3 months time to ensure resolution. Deni Guido MD (Liz Jiang) Assessment and Plan Problem List: (1) Acute kidney injury ICD Codes: N17.9 - Acute kidney failure, unspecified Plan: BETSY creatinine of admission at 1.87 and today with improvement at 1.56 Possible related to HTN or renovascular disease. Patient also with NSTEMI Renal US noted Urinalysis is pending Continue lasix BID Renin and aldosterone levels ordered Will continue to monitor labs and UOP Avoid nephrotoxins (2) NSTEMI (non-ST elevated myocardial infarction) ICD Codes: I21.4 - Non-ST elevation (NSTEMI) myocardial infarction (3) Pneumonia ICD Codes: J18.9 - Pneumonia, unspecified organism Plan: continue antibiotics (4) Hypertension ICD Codes: I10 - Essential (primary) hypertension (Liz Jiang) Problem List: (1) Acute kidney injury ICD Codes: N17.9 - Acute kidney failure, unspecified Plan: BETSY creatinine of admission at 1.87 and today with improvement at 1.56 Possible related to HTN or renovascular disease. Patient also with NSTEMI Renal US noted Urinalysis is pending Continue lasix BID Renin and aldosterone levels ordered Will continue to monitor labs and UOP Avoid nephrotoxins. Patient seen and examined, agree with above. Check AICHA,ANCA. Has no proteinuria. Creatinine was 1.0 in 2015, most likely has BETSY, Creatinine is improving. (2) NSTEMI (non-ST elevated myocardial infarction) ICD Codes: I21.4 - Non-ST elevation (NSTEMI) myocardial infarction (3) Pneumonia ICD Codes: J18.9 - Pneumonia, unspecified organism Plan: continue antibiotics (4) Hypertension ICD Codes: I10 - Essential (primary) hypertension (Rj Melo MD) Liz Jiang May 31, 2017 15:13 Rj Melo MD May 31, 2017 21:26
[2017-05-31 16:24] LABS: HEMOGLOBIN A1C 5.6 % (4.3-6.0)
--- NOTE | 2017-05-31 18:26 | HHI.PR ---
Subjective Remarks Resting in bed no chest pain or short of breath No fever Objective Vitals Vital Signs Date Time Temp Pulse Resp B/P (MAP) Pulse Ox O2 Delivery O2 Flow Rate FiO2 05/31/17 17:00 92 05/31/17 16:00 98.1 93 18 159/99 (119) 100 05/31/17 16:00 90 05/31/17 15:30 Room Air 05/31/17 15:00 86 05/31/17 13:41 151/99 (116) 05/31/17 13:00 92 05/31/17 12:30 160/112 (128) 05/31/17 12:00 88 05/31/17 11:57 97.1 92 18 178/102 (127) 99 05/31/17 11:00 Room Air 05/31/17 11:00 92 05/31/17 10:00 92 05/31/17 09:00 82 05/31/17 08:55 96 21 05/31/17 08:15 97.9 90 18 161/92 (115) 99 05/31/17 08:04 89 05/31/17 07:00 88 05/31/17 06:13 172/105 (127) 05/31/17 05:54 171/104 (126) 05/31/17 04:00 97.2 90 18 176/112 (133) 94 05/31/17 04:00 95 05/31/17 01:52 161/109 (126) 05/31/17 00:00 92 05/31/17 00:00 96.9 97 16 159/108 (125) 98 05/30/17 21:40 164/102 (122) 05/30/17 21:37 98 21 05/30/17 21:00 177/122 (140) 05/30/17 20:00 98.3 99 18 169/121 (137) 99 05/30/17 20:00 94 I/O 05/30/17 05/30/17 05/30/17 05/31/17 05/31/17 05/31/17 07:00 15:00 23:00 07:00 15:00 23:00 Intake Total 2150 ml 240 ml 240 ml 240 ml Output Total 0 ml 2500 ml 2000 ml Balance 2150 ml 240 ml -2260 ml -1760 ml Intake Oral 240 ml 240 ml 240 ml IV Total 2150 ml Output Urine Total 0 ml 2500 ml 2000 ml # Voids 1 0 # Bowel Movements 0 0 0 Result Diagram: 05/31/17 0635 05/31/17 0635 Objective Remarks GENERAL: This is a well-nourished, well-developed patient, in no apparent distress. SKIN: No rashes, warm and dry HEAD: Atraumatic. Normocephalic. EYES: Pupils equal round and reactive. Extraocular motions intact. No scleral icterus. ENT: Nose without bleeding, or drainage, Airway patent. NECK: Trachea midline. Supple CARDIOVASCULAR: Regular rate and rhythm without murmurs, gallops, or rubs. RESPIRATORY: Fair air entry bilaterally. No wheezes, rales, or rhonchi. GASTROINTESTINAL: Abdomen soft, non-tender, nondistended. Positive bowel sounds MUSCULOSKELETAL: Extremities without clubbing, cyanosis, or edema. Pedal pulses appreciated, +1 edema NEUROLOGICAL: Awake and alert. Moves all extremity. Normal speech.no focal neurological deficit A/P Problem List: (1) CHF (congestive heart failure) ICD Code: I50.9 - Heart failure, unspecified (2) NSTEMI (non-ST elevated myocardial infarction) ICD Code: I21.4 - Non-ST elevation (NSTEMI) myocardial infarction (3) Acute kidney injury ICD Code: N17.9 - Acute kidney failure, unspecified (4) Hypertension ICD Code: I10 - Essential (primary) hypertension (5) Pneumonia ICD Code: J18.9 - Pneumonia, unspecified organism Assessment and Plan 05/31: BNP increased to 847 from 499 with increased creatinine, will check renal ultrasound consult ID and follow with cardiology Mr. Horne is a pleasant 31-year-old male with no significant medical history presents to the emergency department due to one-month long shortness of breath, orthopnea, leg swelling. He complains of cough with sung sputum production. No fever or chills. No night sweats, weight loss. CT PE study indicates groundglass opacity with nodular density likely infectious etiology. Patient's clinical symptoms are consistent with new onset congestive heart failure. New onset congestive heart failure likely systolic. NSTEMI type II - likely due to dyspnea which is due to CHF, acute kidney injury. Troponins are 0.56, 0.54, 0.50. - BNP added later - BNP is 499. - Will consult cardiology. - Start Diuresis with Lasix 40mg IV BID - Will consider beta semaj, ABEL inhibitor once patient gets diuresis. - In the acute heart failure setting, starting Beta semaj must be done with caution. - We will also hold off initiating ABEL inhibitory due to BETSY. - Echocardiogram pending. - We may consider Carvedilol 6.25mg BID and Lisinopril 10mg Qday when plausible to start. Hypertension - Start amlodipine 5 mg daily. Titrate up as needed. - Lasix 40mg IV BID will also help with BP. Acute kidney injury - Creatinine 1.87 on admission. Previously 1.0 in 2014. - Possibly due to hypertensive nephropathy. Although Cardiorenal syndrome is a possibility. - With diuresis we may expect better perfusion to the kidneys. - If BETSY is not improved by 05/31/2017, consider renal US and nephrology consult. Possible pneumonia - CT images reviewed by me - shows ground glass opacity. Left nodular density appreciated. - Will d/c Tamiflu. Patient's flu screen is negative. He had Flu in 2016 - Initially, MRSA pneumonia post flu was suspected. CAP appears to be more likely. D/C Zyvox. - Will continue Levaquin 750 Qday - pharmacy to adjust dose. - DuoNeb PRN. Supplemental O2 PRN. Full code. Lovenox. Telemetry. Morris Kruse MD May 31, 2017 18:26
[2017-05-31 19:10] LABS: BILIRUBIN, URINE NEG (NEG); BLOOD, URINE NEG (NEG); GLUCOSE,URINE NEG (NEG); KETONE, URINE NEG (NEG); NITRITE,URINE NEG (NEG); SQUAMOUS EPITHELIAL CELL URINE <1 /hpf (0-5); URINE COLOR LIGHT-YELLOW (YELLW/STRAW); URINE LEUKOCYTE ESTERASE NEG (NEG)
[2017-05-31] MEDS: ATORVASTATIN 40 MG TAB PO SCH (20:42)
[2017-06-01] VITALS (27 sets, daily range): BP systolic 152–172; BP diastolic 93–132; PULSE 77–106; RESP 18–20; TEMP 96.9–98.3; O2SAT 96–100
--- NOTE | 2017-06-01 00:46 | EKG ---
Date Performed: 05/30/2017 Time Performed: 17:02:18 PTAGE: 31 years EKG: Sinus rhythm Possible left atrial abnormality Left ventricular hypertrophy Inferior and ant/septal ST-T changes A bnormal ECG Since the prior tracing, there has been no significant change DOCTOR: Jesús Arriaga Interpretating Date/Time 06/01/2017 00:46:01
[2017-06-01] MEDS: RESP: ALBUTEROL 2.5 MG/IPRATROPIUM 0.5 MG NEB (SCH) NEB ×4 (03:42→21:20)
[2017-06-01 07:08] LABS: BICARBONATE 25.9 MEQ/L (21.0-32.0); CALCIUM 9.1 MG/DL (8.5-10.1); CREATININE 1.74 MG/DL (0.60-1.30); PHOSPHORUS 4.1 MG/DL (2.5-4.9)
--- NOTE | 2017-06-01 08:35 | ECHRPT ---
Indication: HEART FAILURE CONCLUSIONS Normal left ventricular size. Moderate concentric left ventricular hypertrophy. The left ventricular systolic function is moderately reduced with an estimated ejection fraction of 40%. Trace mitral valve regurgitation. There is trace tricuspid valve regurgitation. BP: 172 / 105 HR: 95 Rhythm: MEASUREMENTS (Male / Female) Normal Values Technical Quality: 2D ECHO LV Diastolic Diameter PLAX 4.9 cm 4.2 - 5.9 / 3.9 - 5.3 cm LV Systolic Diameter PLAX 4.0 cm IVS Diastolic Thickness 1.6 cm 0.6 - 1.0 / 0.6 - 0.9 cm LVPW Diastolic Thickness 1.3 cm 0.6 - 1.0 / 0.6 - 0.9 cm LV Relative Wall Thickness 0.6 RV Internal Dim ED PLAX 2.8 cm LA Systolic Diameter LX 4.0 cm 3.0 - 4.0 / 2.7 - 3.8 cm M-MODE Aortic Root Diameter MM 3.2 cm AV Cusp Separation MM 1.9 cm DOPPLER Mitral E Point Velocity 109.0 cm/s Mitral A Point Velocity 46.9 cm/s Mitral E to A Ratio 2.3 TR Peak Velocity 260.3 cm/s TR Peak Gradient 27.1 mmHg FINDINGS LEFT VENTRICLE Normal left ventricular size. Moderate concentric left ventricular hypertrophy. The left ventricular systolic function is moderately reduced with an estimated ejection fraction in the range of 40%. RIGHT VENTRICLE Normal right ventricular size and systolic function. LEFT ATRIUM The left atrial size is normal. RIGHT ATRIUM The right atrial size is normal. ATRIAL SEPTUM Normal atrial septal thickness without atrial level shunting by limited color doppler interrogation. AORTA The aortic root and proximal ascending aorta are normal in size on limited imaging. MITRAL VALVE Trace mitral valve regurgitation. AORTIC VALVE Trileaflet aortic valve. No aortic valve stenosis or regurgitation. TRICUSPID VALVE There is trace tricuspid valve regurgitation. PULMONARY VALVE The pulmonary valve is not well visualized. VESSELS The inferior vena cava is normal in size. PERICARDIUM No pericardial effusion. Jesús Arriaga MD, FACC (Electronically Signed) Final Date:01 June 2017 08:34
[2017-06-01] MEDS: SODIUM CHLORIDE 0.9% FLUSH 10 ML FLUSH IV FLUSH SCH ×2 (09:24→20:29)
[2017-06-01] MEDS: LEVOFLOXACIN 750 MG TAB PO SCH (09:26)
[2017-06-01] MEDS: amLODIPine BESYLATE 5 MG TAB PO SCH (09:26)
[2017-06-01] MEDS: FUROSEMIDE 40 MG/4 ML VIAL IV PUSH SCH ×2 (09:26→16:55)
[2017-06-01] MEDS: ASPIRIN EC 81 MG TABEC PO SCH (09:26)
[2017-06-01] MEDS: LABETALOL HCL 100 MG/20 ML VIAL IV PUSH PRN (11:41)
[2017-06-01] MEDS: ENOXAPARIN SODIUM 30 MG/0.3 ML SYRINGE SQ SCH (11:41)
[2017-06-01] MEDS ORDERED: PILL SPLITTER OTHER PRN (12:30)
[2017-06-01] MEDS ORDERED: ENALAPRILAT 1.25 MG/ML VIAL IV PUSH PRN (12:30)
[2017-06-01] MEDS ORDERED: METOPROLOL TARTRATE 25 MG TAB PO SCH (12:30)
--- NOTE | 2017-06-01 16:08 | HHI.NPPN ---
Subjective History of Present Illness Patient is a 31-year-old male with malignant hypertension and chronic kidney disease Objective Data Data Vital Signs Date Time Temp Pulse Resp B/P (MAP) Pulse Ox O2 Delivery O2 Flow Rate FiO2 06/01/17 15:38 97.4 98 18 152/107 (122) 99 06/01/17 15:00 Room Air 06/01/17 14:00 104 06/01/17 13:00 96 06/01/17 12:00 96 06/01/17 11:45 Room Air 06/01/17 11:41 97.5 96 18 152/102 (119) 99 06/01/17 11:23 106 06/01/17 10:00 94 06/01/17 09:00 100 06/01/17 08:29 99 21 06/01/17 08:00 96.9 100 20 172/132 (145) 97 06/01/17 08:00 94 06/01/17 07:15 Room Air 06/01/17 07:00 90 06/01/17 06:00 89 06/01/17 05:00 93 06/01/17 04:00 Room Air 06/01/17 04:00 96 06/01/17 04:00 98.3 96 18 152/98 (116) 96 06/01/17 03:00 90 06/01/17 02:00 92 06/01/17 01:00 91 06/01/17 00:00 Room Air 06/01/17 00:00 98.0 95 20 152/100 (117) 97 06/01/17 00:00 95 05/31/17 23:00 90 05/31/17 22:00 92 05/31/17 21:10 100 05/31/17 21:00 96 05/31/17 20:00 99 05/31/17 20:00 Room Air 05/31/17 20:00 98.1 99 20 149/94 (112) 98 05/31/17 17:00 92 -: 05/31/17 0635 06/01/17 0620 Physical Exam General Appearance: Well Developed, Well Nourished Eyes Eye Exam: Pupils Equal Throat Throat Exam: Oral Mucosa [place] & Moist Neck Neck Exam: Neck Supple Pulmonary Resp Exam: Clear Bilaterally, Breath Sounds Equal Cardiology CV Exam: Regular, Normal Sinus Rhythm Gastrointestinal/Abdomen GI Exam: Soft, Non-Tender, Bowel Sounds Present Extremeties Extremities Exam: No Edema Neurologic Neuro Exam: Alert, Awake Assessment/Plan Problem List: (1) Acute kidney injury ICD Codes: N17.9 - Acute kidney failure, unspecified Plan: BETSY creatinine of admission at 1.87 and 1.56 today 1.7 Possible related to HTN or renovascular disease. Patient also with NSTEMI Renal US noted Urinalysis is pending Check AICHA,ANCA. Has no proteinuria. Acute kidney injury related to malignant hypertension Blood pressure is labile Add minoxidil 2.5 mg daily, I changed to labetalol 200 mg twice a day in place of Metoprolol Given his chronic kidney disease and young age he need to aggressively control his blood pressure (2) NSTEMI (non-ST elevated myocardial infarction) ICD Codes: I21.4 - Non-ST elevation (NSTEMI) myocardial infarction (3) Pneumonia ICD Codes: J18.9 - Pneumonia, unspecified organism Plan: continue antibiotics (4) Hypertension ICD Codes: I10 - Essential (primary) hypertension Luis Eduardo Campos MD Jun 01, 2017 16:08
[2017-06-01] MEDS ORDERED: MINOXIDIL 2.5 MG TAB PO ONE (16:15)
--- NOTE | 2017-06-01 16:52 | HHI.PR ---
Subjective Remarks Patient with increased heart rate and blood pressure, increased WBC No chest pain no short of breath no fever Objective Vitals Vital Signs Date Time Temp Pulse Resp B/P (MAP) Pulse Ox O2 Delivery O2 Flow Rate FiO2 06/01/17 15:38 97.4 98 18 152/107 (122) 99 06/01/17 15:00 Room Air 06/01/17 15:00 102 06/01/17 14:00 104 06/01/17 13:00 96 06/01/17 12:00 96 06/01/17 11:45 Room Air 06/01/17 11:41 97.5 96 18 152/102 (119) 99 06/01/17 11:23 106 06/01/17 10:00 94 06/01/17 09:00 100 06/01/17 08:29 99 21 06/01/17 08:00 96.9 100 20 172/132 (145) 97 06/01/17 08:00 94 06/01/17 07:15 Room Air 06/01/17 07:00 90 06/01/17 06:00 89 06/01/17 05:00 93 06/01/17 04:00 Room Air 06/01/17 04:00 96 06/01/17 04:00 98.3 96 18 152/98 (116) 96 06/01/17 03:00 90 06/01/17 02:00 92 06/01/17 01:00 91 06/01/17 00:00 Room Air 06/01/17 00:00 98.0 95 20 152/100 (117) 97 06/01/17 00:00 95 05/31/17 23:00 90 05/31/17 22:00 92 05/31/17 21:10 100 05/31/17 21:00 96 05/31/17 20:00 99 05/31/17 20:00 Room Air 05/31/17 20:00 98.1 99 20 149/94 (112) 98 05/31/17 17:00 92 I/O 05/31/17 05/31/17 05/31/17 06/01/17 06/01/17 06/01/17 06:59 14:59 22:59 06:59 14:59 22:59 Intake Total 240 ml 240 ml 480 ml Output Total 2500 ml 2000 ml 1900 ml Balance -2260 ml -1760 ml -1420 ml Intake Oral 240 ml 240 ml 480 ml Output Urine Total 2500 ml 2000 ml 1900 ml # Bowel Movements 0 0 0 Result Diagram: 05/31/1735 06/01/17619 Objective Remarks GENERAL: This is a well-nourished, well-developed patient, in no apparent distress. SKIN: No rashes, warm and dry HEAD: Atraumatic. Normocephalic. EYES: Pupils equal round and reactive. Extraocular motions intact. No scleral icterus. ENT: Nose without bleeding, or drainage, Airway patent. NECK: Trachea midline. Supple CARDIOVASCULAR: Regular rate and rhythm without murmurs, gallops, or rubs. RESPIRATORY: Fair air entry bilaterally. No wheezes, rales, or rhonchi. GASTROINTESTINAL: Abdomen soft, non-tender, nondistended. Positive bowel sounds MUSCULOSKELETAL: Extremities without clubbing, cyanosis, or edema. Pedal pulses appreciated, +1 edema NEUROLOGICAL: Awake and alert. Moves all extremity. Normal speech.no focal neurological deficit A/P Problem List: (1) CHF (congestive heart failure) ICD Code: I50.9 - Heart failure, unspecified (2) NSTEMI (non-ST elevated myocardial infarction) ICD Code: I21.4 - Non-ST elevation (NSTEMI) myocardial infarction (3) Acute kidney injury ICD Code: N17.9 - Acute kidney failure, unspecified (4) Hypertension ICD Code: I10 - Essential (primary) hypertension (5) Pneumonia ICD Code: J18.9 - Pneumonia, unspecified organism Assessment and Plan 05/31: BNP increased to 847 from 499 with increased creatinine, will check renal ultrasound consult ID and follow with cardiology 06/01: Appreciate cardiology, ID consultation, continue current care, Repeat CBC BMP in a.m., monitor temperature, blood pressure I will add metoprolol and amlodipine for better blood pressure control A/P Mr. Horne is a pleasant 31-year-old male with no significant medical history presents to the emergency department due to one-month long shortness of breath, orthopnea, leg swelling. He complains of cough with sung sputum production. No fever or chills. No night sweats, weight loss. CT PE study indicates groundglass opacity with nodular density likely infectious etiology. Patient's clinical symptoms are consistent with new onset congestive heart failure. New onset congestive heart failure likely systolic. NSTEMI type II - likely due to dyspnea which is due to CHF, acute kidney injury. Troponins are 0.56, 0.54, 0.50. - BNP added later - BNP is 499. - Will consult cardiology. - Start Diuresis with Lasix 40mg IV BID - Will consider beta semaj, ABEL inhibitor once patient gets diuresis. - In the acute heart failure setting, starting Beta semaj must be done with caution. - We will also hold off initiating ABEL inhibitory due to BETSY. - Echocardiogram pending. - We may consider Carvedilol 6.25mg BID and Lisinopril 10mg Qday when plausible to start. Hypertension - Start amlodipine 5 mg daily. Titrate up as needed. - Lasix 40mg IV BID will also help with BP. Acute kidney injury - Creatinine 1.87 on admission. Previously 1.0 in 2014. - Possibly due to hypertensive nephropathy. Although Cardiorenal syndrome is a possibility. - With diuresis we may expect better perfusion to the kidneys. - If BETSY is not improved by 05/31/2017, consider renal US and nephrology consult. Possible pneumonia - CT images reviewed by me - shows ground glass opacity. Left nodular density appreciated. - Will d/c Tamiflu. Patient's flu screen is negative. He had Flu in 2016 - Initially, MRSA pneumonia post flu was suspected. CAP appears to be more likely. D/C Zyvox. - Will continue Levaquin 750 Qday - pharmacy to adjust dose. - DuoNeb PRN. Supplemental O2 PRN. Full code. Lovenox. Telemetry. Morris Kruse MD Jun 01, 2017 16:52
--- NOTE | 2017-06-01 17:58 | PD.CARD.PN ---
Subjective Subjective Remarks alert in nad Objective Medications Current Medications Medications (Trade) Dose Ordered Sig/Mary Route Start Time Stop Time Status Last Admin (Trandate Inj) 10 mg Q20M PRN IV PUSH 05/30/17 06:30 06/01/17 11:41 (Duoneb Neb) 1 ampule Q6HR NEB NEB 05/30/17 10:00 06/01/17 15:17 (NS Flush) 2 ml UNSCH PRN IV FLUSH 05/30/17 10:45 (NS Flush) 2 ml BID IV FLUSH 05/30/17 21:00 06/01/17 09:24 (Tylenol) 650 mg Q4H PRN PO 05/30/17 10:45 (Zofran Inj) 4 mg Q6H PRN IVP 05/30/17 10:45 (Lovenox Inj) 30 mg Q24H SQ 05/30/17 12:00 06/01/17 11:41 (Narcan Inj) 0.4 mg UNSCH PRN IV PUSH 05/30/17 10:45 (Milk Of Magnesia Liq) 30 ml Q12H PRN PO 05/30/17 10:45 (Senokot) 17.2 mg Q12H PRN PO 05/30/17 10:45 (Dulcolax Supp) 10 mg DAILY PRN RECTAL 05/30/17 10:45 (Lactulose Liq) 30 ml DAILY PRN PO 05/30/17 10:45 (Levaquin) 750 mg DAILY PO 05/31/17 09:00 06/07/17 08:59 06/01/17 09:26 (Duoneb Neb) 1 ampule Q4HR NEB PRN NEB 05/30/17 10:45 (Lasix Inj) 40 mg BID@ IV PUSH 05/30/17 18:00 06/01/17 16:55 (Ecotrin Ec) 81 mg DAILY PO 05/31/17 09:00 06/01/17 09:26 (Lipitor) 40 mg HS PO 05/30/17 21:00 05/31/17 20:42 (Norvasc) 10 mg DAILY PO 06/02/17 09:00 (Vasotec Inj) 1.25 mg Q6H PRN IV PUSH 06/01/17 12:30 (Pill Splitter) 1 ea UNSCH PRN OTHER 06/01/17 12:30 (Loniten) 2.5 mg DAILY PO 06/02/17 09:00 (Trandate) 200 mg Q12HR PO 06/01/17 21:00 Vital Signs / I&O Vital Signs Date Time Temp Pulse Resp B/P (MAP) Pulse Ox O2 Delivery O2 Flow Rate FiO2 06/01/17 15:38 97.4 98 18 152/107 (122) 99 06/01/17 15:00 Room Air 06/01/17 15:00 102 06/01/17 14:00 104 06/01/17 13:00 96 06/01/17 12:00 96 06/01/17 11:45 Room Air 06/01/17 11:41 97.5 96 18 152/102 (119) 99 06/01/17 11:23 106 06/01/17 10:00 94 06/01/17 09:00 100 06/01/17 08:29 99 21 06/01/17 08:00 96.9 100 20 172/132 (145) 97 06/01/17 08:00 94 06/01/17 07:15 Room Air 06/01/17 07:00 90 06/01/17 06:00 89 06/01/17 05:00 93 06/01/17 04:00 Room Air 06/01/17 04:00 96 06/01/17 04:00 98.3 96 18 152/98 (116) 96 06/01/17 03:00 90 06/01/17 02:00 92 06/01/17 01:00 91 06/01/17 00:00 Room Air 06/01/17 00:00 98.0 95 20 152/100 (117) 97 06/01/17 00:00 95 05/31/17 23:00 90 05/31/17 22:00 92 05/31/17 21:10 100 05/31/17 21:00 96 05/31/17 20:00 99 05/31/17 20:00 Room Air 05/31/17 20:00 98.1 99 20 149/94 (112) 98 I/O 05/31/17 05/31/17 05/31/17 06/01/17 06/01/17 06/01/17 07:00 15:00 23:00 07:00 15:00 23:00 Intake Total 240 ml 240 ml 480 ml 780 ml Output Total 2500 ml 2000 ml 1900 ml 3700 ml Balance -2260 ml -1760 ml -1420 ml -2920 ml Intake Oral 240 ml 240 ml 480 ml 780 ml Output Urine Total 2500 ml 2000 ml 1900 ml 3700 ml # Bowel Movements 0 0 0 0 Physical Exam GENERAL: SKIN: Warm and dry. HEAD: Normocephalic. EYES: No scleral icterus. No injection or drainage. NECK: Supple, trachea midline. No JVD or lymphadenopathy. CARDIOVASCULAR: Regular rate and rhythm without murmurs, gallops, or rubs. RESPIRATORY: Breath sounds equal bilaterally. No accessory muscle use. GASTROINTESTINAL: Abdomen soft, non-tender, nondistended. MUSCULOSKELETAL: No cyanosis, or edema. BACK: Nontender without obvious deformity. No CVA tenderness. Laboratory Laboratory Tests Test 06/01/17 06:10 06/01/17 06:20 Blood Urea Nitrogen 27 MG/DL Creatinine 1.74 MG/DL Random Glucose 81 MG/DL Calcium Level 9.1 MG/DL Phosphorus Level 4.1 MG/DL Sodium Level 138 MEQ/L Potassium Level 3.5 MEQ/L Chloride Level 103 MEQ/L Carbon Dioxide Level 25.9 MEQ/L Anion Gap 9 MEQ/L Estimat Glomerular Filtration Rate 56 ML/MIN Assessment and Plan Problem List: (1) CHF (congestive heart failure) ICD Codes: I50.9 - Heart failure, unspecified (2) Hypertension ICD Codes: I10 - Essential (primary) hypertension (3) Pneumonia ICD Codes: J18.9 - Pneumonia, unspecified organism (4) NSTEMI (non-ST elevated myocardial infarction) ICD Codes: I21.4 - Non-ST elevation (NSTEMI) myocardial infarction (5) Acute kidney injury ICD Codes: N17.9 - Acute kidney failure, unspecified Assessment and Plan 1.) NSTEMI - [facility] if/when renal function stabilize, continue medical management, renal following Dax Spain MD Jun 01, 2017 17:58
[2017-06-01] MEDS: LABETALOL HCL 200 MG TAB PO SCH (20:29)
[2017-06-01] MEDS: ATORVASTATIN 40 MG TAB PO SCH (20:29)
[2017-06-02] VITALS (24 sets, daily range): BP systolic 133–162; BP diastolic 82–100; PULSE 74–98; RESP 16–20; TEMP 97.7–99; O2SAT 94–99
[2017-06-02] MEDS: RESP: ALBUTEROL 2.5 MG/IPRATROPIUM 0.5 MG NEB (SCH) NEB ×4 (04:05→20:58)
[2017-06-02 08:00] LABS: BICARBONATE 30.4 MEQ/L (21.0-32.0); CALCIUM 8.9 MG/DL (8.5-10.1); CREATININE 1.81 MG/DL (0.60-1.30)
[2017-06-02] MEDS: LEVOFLOXACIN 750 MG TAB PO SCH (08:27)
[2017-06-02] MEDS: LABETALOL HCL 200 MG TAB PO SCH ×2 (08:27→20:42)
[2017-06-02] MEDS: MINOXIDIL 2.5 MG TAB PO SCH (08:28)
[2017-06-02] MEDS: SODIUM CHLORIDE 0.9% FLUSH 10 ML FLUSH IV FLUSH SCH ×2 (08:28→20:42)
[2017-06-02] MEDS: amLODIPine BESYLATE 5 MG TAB PO SCH (08:28)
[2017-06-02] MEDS: FUROSEMIDE 40 MG/4 ML VIAL IV PUSH SCH (08:28)
[2017-06-02] MEDS: ASPIRIN EC 81 MG TABEC PO SCH (08:28)
[2017-06-02] MEDS: LABETALOL HCL 100 MG/20 ML VIAL IV PUSH PRN (09:18)
--- NOTE | 2017-06-02 10:52 | PD.CARD.PN ---
Subjective Subjective Remarks alert in nad Objective Medications Current Medications Medications (Trade) Dose Ordered Sig/Mary Route Start Time Stop Time Status Last Admin (Trandate Inj) 10 mg Q20M PRN IV PUSH 05/30/17 06:30 06/02/17 09:18 (Duoneb Neb) 1 ampule Q6HR NEB NEB 05/30/17 10:00 06/02/17 10:05 (NS Flush) 2 ml UNSCH PRN IV FLUSH 05/30/17 10:45 (NS Flush) 2 ml BID IV FLUSH 05/30/17 21:00 06/02/17 08:28 (Tylenol) 650 mg Q4H PRN PO 05/30/17 10:45 (Zofran Inj) 4 mg Q6H PRN IVP 05/30/17 10:45 (Lovenox Inj) 30 mg Q24H SQ 05/30/17 12:00 06/01/17 11:41 (Narcan Inj) 0.4 mg UNSCH PRN IV PUSH 05/30/17 10:45 (Milk Of Magnesia Liq) 30 ml Q12H PRN PO 05/30/17 10:45 (Senokot) 17.2 mg Q12H PRN PO 05/30/17 10:45 (Dulcolax Supp) 10 mg DAILY PRN RECTAL 05/30/17 10:45 (Lactulose Liq) 30 ml DAILY PRN PO 05/30/17 10:45 (Levaquin) 750 mg DAILY PO 05/31/17 09:00 06/07/17 08:59 06/02/17 08:27 (Duoneb Neb) 1 ampule Q4HR NEB PRN NEB 05/30/17 10:45 (Lasix Inj) 40 mg BID@ IV PUSH 05/30/17 18:00 06/02/17 08:28 (Ecotrin Ec) 81 mg DAILY PO 05/31/17 09:00 06/02/17 08:28 (Lipitor) 40 mg HS PO 05/30/17 21:00 06/01/17 20:29 (Norvasc) 10 mg DAILY PO 06/02/17 09:00 06/02/17 08:28 (Vasotec Inj) 1.25 mg Q6H PRN IV PUSH 06/01/17 12:30 (Pill Splitter) 1 ea UNSCH PRN OTHER 06/01/17 12:30 (Loniten) 2.5 mg DAILY PO 06/02/17 09:00 06/02/17 08:28 (Trandate) 200 mg Q12HR PO 06/01/17 21:00 06/02/17 08:27 Vital Signs / I&O Vital Signs Date Time Temp Pulse Resp B/P (MAP) Pulse Ox O2 Delivery O2 Flow Rate FiO2 06/02/17 10:06 99 06/02/17 09:00 98 06/02/17 08:00 Room Air 06/02/17 08:00 90 06/02/17 07:00 97.7 84 20 162/100 (120) 97 06/02/17 07:00 92 06/02/17 06:00 92 06/02/17 05:00 78 06/02/17 04:00 79 06/02/17 04:00 Room Air 06/02/17 04:00 98.4 79 18 155/100 (118) 97 06/02/17 03:00 81 06/02/17 02:00 80 06/02/17 01:00 83 06/02/17 00:00 84 06/02/17 00:00 98.1 84 18 153/87 (109) 98 06/02/17 00:00 Room Air 06/01/17 23:00 77 06/01/17 22:00 80 06/01/17 21:20 100 21 06/01/17 21:00 81 06/01/17 20:00 Room Air 06/01/17 20:00 79 06/01/17 20:00 98.0 79 20 152/93 (112) 98 06/01/17 18:00 92 06/01/17 17:00 92 06/01/17 16:00 94 06/01/17 15:38 97.4 98 18 152/107 (122) 99 06/01/17 15:00 Room Air 06/01/17 15:00 102 06/01/17 14:00 104 06/01/17 13:00 96 06/01/17 12:00 96 06/01/17 11:45 Room Air 06/01/17 11:41 97.5 96 18 152/102 (119) 99 2/17/18 11:23 106 I/O 06/01/17 06/01/17 06/01/17 06/02/17 06/02/17 06/02/17 07:00 15:00 23:00 07:00 15:00 23:00 Intake Total 480 ml 780 ml 480 ml Output Total 1900 ml 3700 ml 1775 ml 550 ml Balance -1420 ml -2920 ml -1295 ml -550 ml Intake Oral 480 ml 780 ml 480 ml Output Urine Total 1900 ml 3700 ml 1775 ml 550 ml # Bowel Movements 0 0 0 Physical Exam GENERAL: SKIN: Warm and dry. HEAD: Normocephalic. EYES: No scleral icterus. No injection or drainage. NECK: Supple, trachea midline. No JVD or lymphadenopathy. CARDIOVASCULAR: Regular rate and rhythm without murmurs, gallops, or rubs. RESPIRATORY: Breath sounds equal bilaterally. No accessory muscle use. GASTROINTESTINAL: Abdomen soft, non-tender, nondistended. MUSCULOSKELETAL: No cyanosis, or edema. BACK: Nontender without obvious deformity. No CVA tenderness. Laboratory Laboratory Tests Test 06/02/17 06:49 Blood Urea Nitrogen 26 MG/DL Creatinine 1.81 MG/DL Random Glucose 84 MG/DL Calcium Level 8.9 MG/DL Sodium Level 140 MEQ/L Potassium Level 3.4 MEQ/L Chloride Level 103 MEQ/L Carbon Dioxide Level 30.4 MEQ/L Anion Gap 7 MEQ/L Estimat Glomerular Filtration Rate 54 ML/MIN Imaging GENERAL: SKIN: Warm and dry. HEAD: Normocephalic. EYES: No scleral icterus. No injection or drainage. NECK: Supple, trachea midline. No JVD or lymphadenopathy. CARDIOVASCULAR: Regular rate and rhythm without murmurs, gallops, or rubs. RESPIRATORY: Breath sounds equal bilaterally. No accessory muscle use. GASTROINTESTINAL: Abdomen soft, non-tender, nondistended. MUSCULOSKELETAL: No cyanosis, or edema. BACK: Nontender without obvious deformity. No CVA tenderness. Assessment and Plan Problem List: (1) CHF (congestive heart failure) ICD Codes: I50.9 - Heart failure, unspecified (2) Hypertension ICD Codes: I10 - Essential (primary) hypertension (3) Pneumonia ICD Codes: J18.9 - Pneumonia, unspecified organism (4) NSTEMI (non-ST elevated myocardial infarction) ICD Codes: I21.4 - Non-ST elevation (NSTEMI) myocardial infarction (5) Acute kidney injury ICD Codes: N17.9 - Acute kidney failure, unspecified Assessment and Plan 1.) NSTEMI/cardiomyopathy/htn/arf - [facility] if/when renal function stabilize, continue medical management(aspirin, minoxidil, labetolol, norvasc, lasix), renal following, scr=1.81 today, worse Dax Spain MD Jun 02, 2017 10:52
[2017-06-02] MEDS: ENOXAPARIN SODIUM 30 MG/0.3 ML SYRINGE SQ SCH (11:11)
--- NOTE | 2017-06-02 13:32 | HHI.NPPN ---
Subjective History of Present Illness Patient is a 31-year-old male with malignant hypertension and chronic kidney disease Objective Data Data 06/02/17 06/03/17 19:00 07:00 Output Total 550 ml Balance -550 ml Output Urine Total 550 ml Vital Signs Date Time Temp Pulse Resp B/P (MAP) Pulse Ox O2 Delivery O2 Flow Rate FiO2 06/02/17 11:00 Room Air 06/02/17 11:00 80 06/02/17 11:00 98.1 80 16 133/82 (99) 97 06/02/17 10:06 99 06/02/17 10:00 90 06/02/17 09:00 98 06/02/17 08:00 Room Air 06/02/17 08:00 90 06/02/17 07:00 97.7 84 20 162/100 (120) 97 06/02/17 07:00 92 06/02/17 06:00 92 06/02/17 05:00 78 06/02/17 04:00 79 06/02/17 04:00 Room Air 06/02/17 04:00 98.4 79 18 155/100 (118) 97 06/02/17 03:00 81 06/02/17 02:00 80 06/02/17 01:00 83 06/02/17 00:00 84 06/02/17 00:00 98.1 84 18 153/87 (109) 98 06/02/17 00:00 Room Air 06/01/17 23:00 77 06/01/17 22:00 80 06/01/17 21:20 100 21 06/01/17 21:00 81 06/01/17 20:00 Room Air 06/01/17 20:00 79 06/01/17 20:00 98.0 79 20 152/93 (112) 98 06/01/17 18:00 92 06/01/17 17:00 92 06/01/17 16:00 94 06/01/17 15:38 97.4 98 18 152/107 (122) 99 06/01/17 15:00 Room Air 06/01/17 15:00 102 06/01/17 14:00 104 -: 05/31/17 0635 06/02/17 0649 Physical Exam General Appearance: Well Developed, Well Nourished Eyes Eye Exam: Pupils Equal Throat Throat Exam: Oral Mucosa [place] & Moist Neck Neck Exam: Neck Supple Pulmonary Resp Exam: Clear Bilaterally, Breath Sounds Equal Cardiology CV Exam: Regular, Normal Sinus Rhythm Gastrointestinal/Abdomen GI Exam: Soft, Non-Tender, Bowel Sounds Present Extremeties Extremities Exam: No Edema Neurologic Neuro Exam: Alert, Awake Assessment/Plan Problem List: (1) Acute kidney injury ICD Codes: N17.9 - Acute kidney failure, unspecified Plan: BETSY creatinine of admission at 1.87 and 1.56 today 1.8 Possible related to HTN or renovascular disease. Patient also with NSTEMI Renal US noted Urinalysis is pending Check AICHA,ANCA. Has no proteinuria. Acute kidney injury related to malignant hypertension Blood pressure is better on minoxidil 2.5 mg daily, labetalol 200 mg twice a day ,Amlodipine ,Lasix which will be decreased to 40 mg PO Given his chronic kidney disease and young age he need to aggressively control his blood pressure Dr. Melo to follow (2) NSTEMI (non-ST elevated myocardial infarction) ICD Codes: I21.4 - Non-ST elevation (NSTEMI) myocardial infarction (3) Pneumonia ICD Codes: J18.9 - Pneumonia, unspecified organism Plan: continue antibiotics (4) Hypertension ICD Codes: I10 - Essential (primary) hypertension Luis Eduardo Campos MD Jun 02, 2017 13:32
[2017-06-02] MEDS ORDERED: POTASSIUM CHLORIDE 8 MEQ CONTROLLED RELEASE TAB PO ONE (13:45)
[2017-06-02] MEDS: ATORVASTATIN 40 MG TAB PO SCH (20:42)
--- NOTE | 2017-06-02 23:49 | HHI.PR ---
Subjective Remarks Resting comfortably in bed No event overnight Denied chest and or short of breath No fever or chills Objective Vitals Vital Signs Date Time Temp Pulse Resp B/P (MAP) Pulse Ox O2 Delivery O2 Flow Rate FiO2 06/02/17 22:00 94 06/02/17 18:00 80 06/02/17 17:00 80 06/02/17 16:00 80 06/02/17 15:00 86 06/02/17 15:00 99 Room Air 06/02/17 15:00 99.0 82 16 136/88 (104) 99 06/02/17 14:00 82 06/02/17 13:00 80 06/02/17 12:00 80 06/02/17 11:00 Room Air 06/02/17 11:00 80 06/02/17 11:00 98.1 80 16 133/82 (99) 97 06/02/17 10:06 99 06/02/17 10:00 90 06/02/17 09:00 98 06/02/17 08:00 Room Air 06/02/17 08:00 90 06/02/17 07:00 97.7 84 20 162/100 (120) 97 06/02/17 07:00 92 06/02/17 06:00 92 06/02/17 05:00 78 06/02/17 04:00 79 06/02/17 04:00 Room Air 06/02/17 04:00 98.4 79 18 155/100 (118) 97 06/02/17 03:00 81 06/02/17 02:00 80 06/02/17 01:00 83 06/02/17 00:00 84 06/02/17 00:00 98.1 84 18 153/87 (109) 98 06/02/17 00:00 Room Air I/O 06/02/17 06/02/17 06/02/17 06/03/17 06/03/17 06/03/17 07:00 15:00 23:00 07:00 15:00 23:00 Intake Total 480 ml 480 ml Output Total 1775 ml 550 ml 800 ml Balance -1295 ml -550 ml -320 ml Intake Oral 480 ml 480 ml Output Urine Total 1775 ml 550 ml 800 ml # Bowel Movements 0 Result Diagram: 05/31/17 0635 06/02/17 2080 Objective Remarks GENERAL: This is a well-nourished, well-developed patient, in no apparent distress. SKIN: No rashes, warm and dry HEAD: Atraumatic. Normocephalic. EYES: Pupils equal round and reactive. Extraocular motions intact. No scleral icterus. ENT: Nose without bleeding, or drainage, Airway patent. NECK: Trachea midline. Supple CARDIOVASCULAR: Regular rate and rhythm without murmurs, gallops, or rubs. RESPIRATORY: Fair air entry bilaterally. No wheezes, rales, or rhonchi. GASTROINTESTINAL: Abdomen soft, non-tender, nondistended. Positive bowel sounds MUSCULOSKELETAL: Extremities without clubbing, cyanosis, or edema. Pedal pulses appreciated NEUROLOGICAL: Awake and alert. Moves all extremity. Normal speech.no focal neurological deficit A/P Problem List: (1) CHF (congestive heart failure) ICD Code: I50.9 - Heart failure, unspecified (2) NSTEMI (non-ST elevated myocardial infarction) ICD Code: I21.4 - Non-ST elevation (NSTEMI) myocardial infarction (3) Acute kidney injury ICD Code: N17.9 - Acute kidney failure, unspecified (4) Hypertension ICD Code: I10 - Essential (primary) hypertension (5) Pneumonia ICD Code: J18.9 - Pneumonia, unspecified organism Assessment and Plan 05/31: BNP increased to 847 from 499 with increased creatinine, will check renal ultrasound consult ID and follow with cardiology 06/01: Appreciate cardiology, ID consultation, continue current care, Repeat CBC BMP in a.m., monitor temperature, blood pressure I will add metoprolol and amlodipine for better blood pressure control. 06/02: Continue current care, monitor blood pressure, plan for possibly on Saturday if creatinine improved A/P Mr. Horne is a pleasant 31-year-old male with no significant medical history presents to the emergency department due to one-month long shortness of breath, orthopnea, leg swelling. He complains of cough with sung sputum production. No fever or chills. No night sweats, weight loss. CT PE study indicates groundglass opacity with nodular density likely infectious etiology. Patient's clinical symptoms are consistent with new onset congestive heart failure. New onset congestive heart failure likely systolic. NSTEMI type II - likely due to dyspnea which is due to CHF, acute kidney injury. Troponins are 0.56, 0.54, 0.50. - BNP added later - BNP is 499. - Will consult cardiology. - Start Diuresis with Lasix 40mg IV BID - Will consider beta semaj, ABEL inhibitor once patient gets diuresis. - In the acute heart failure setting, starting Beta semaj must be done with caution. - We will also hold off initiating ABEL inhibitory due to BETSY. - Echocardiogram pending. - We may consider Carvedilol 6.25mg BID and Lisinopril 10mg Qday when plausible to start. Hypertension - Start amlodipine 5 mg daily. Titrate up as needed. - Lasix 40mg IV BID will also help with BP. Acute kidney injury - Creatinine 1.87 on admission. Previously 1.0 in 2015. - Possibly due to hypertensive nephropathy. Although Cardiorenal syndrome is a possibility. - With diuresis we may expect better perfusion to the kidneys. - If BETSY is not improved by 05/31/2017, consider renal US and nephrology consult. Possible pneumonia - CT images reviewed by me - shows ground glass opacity. Left nodular density appreciated. - Will d/c Tamiflu. Patient's flu screen is negative. He had Flu in 2016 - Initially, MRSA pneumonia post flu was suspected. CAP appears to be more likely. D/C Zyvox. - Will continue Levaquin 750 Qday - pharmacy to adjust dose. - DuoNeb PRN. Supplemental O2 PRN. Full code. Lovenox. Telemetry. Morris Kruse MD Jun 02, 2017 23:49
[2017-06-03] VITALS (28 sets, daily range): BP systolic 125–157; BP diastolic 76–109; PULSE 72–92; RESP 16–20; TEMP 98–98.6; O2SAT 97–100
[2017-06-03] MEDS: RESP: ALBUTEROL 2.5 MG/IPRATROPIUM 0.5 MG NEB (SCH) NEB ×2 (03:18→09:17)
[2017-06-03 07:19] LABS: BICARBONATE 30.1 MEQ/L (21.0-32.0); CALCIUM 8.8 MG/DL (8.5-10.1); CREATININE 1.51 MG/DL (0.60-1.30)
[2017-06-03] MEDS: ASPIRIN EC 81 MG TABEC PO SCH (09:12)
[2017-06-03] MEDS: amLODIPine BESYLATE 5 MG TAB PO SCH (09:12)
[2017-06-03] MEDS: LEVOFLOXACIN 750 MG TAB PO SCH (09:12)
[2017-06-03] MEDS: MINOXIDIL 2.5 MG TAB PO SCH (09:13)
[2017-06-03] MEDS: POTASSIUM CHLORIDE 8 MEQ CAP PO SCH (09:13)
[2017-06-03] MEDS: FUROSEMIDE 40 MG TAB PO SCH (09:13)
[2017-06-03] MEDS: LABETALOL HCL 200 MG TAB PO SCH (09:15)
[2017-06-03] MEDS: SODIUM CHLORIDE 0.9% FLUSH 10 ML FLUSH IV FLUSH SCH ×2 (09:15→21:00)
[2017-06-03] MEDS: ENOXAPARIN SODIUM 30 MG/0.3 ML SYRINGE SQ SCH (11:49)
--- NOTE | 2017-06-03 14:44 | HHI.NPPN ---
Subjective History of Present Illness Patient is a 31-year-old male with malignant hypertension and chronic kidney disease. Additional Remarks Patient seen in AM, no headache, no SOB. Objective Data Data Vital Signs Date Time Temp Pulse Resp B/P (MAP) Pulse Ox O2 Delivery O2 Flow Rate FiO2 06/03/17 11:46 98.2 77 18 133/83 (100) 98 06/03/17 11:46 Room Air 06/03/17 09:17 100 21 06/03/17 09:07 98.0 84 18 157/109 (125) 99 06/03/17 09:07 Room Air 06/03/17 05:51 86 06/03/17 05:00 85 06/03/17 04:00 Room Air 06/03/17 04:00 91 06/03/17 04:00 98.6 91 18 155/90 (111) 98 06/03/17 03:00 82 06/03/17 02:00 92 06/03/17 01:00 77 06/03/17 00:00 Room Air 06/03/17 00:00 98.1 73 20 135/87 (103) 97 06/03/17 00:00 73 06/02/17 23:00 80 06/02/17 22:00 92 06/02/17 22:00 94 06/02/17 21:00 80 06/02/17 20:00 74 06/02/17 20:00 Room Air 06/02/17 20:00 98.3 74 18 153/87 (109) 98 06/02/17 18:00 80 06/02/17 17:00 80 06/02/17 16:00 80 06/02/17 15:00 86 06/02/17 15:00 99 Room Air 06/02/17 15:00 99.0 82 16 136/88 (104) 99 -: 05/31/17 0635 06/03/17 0615 Physical Exam General Appearance: Well Developed, Well Nourished Eyes Eye Exam: Pupils Equal Throat Throat Exam: Oral Mucosa [place] & Moist Neck Neck Exam: Neck Supple Pulmonary Resp Exam: Clear Bilaterally, Breath Sounds Equal Cardiology CV Exam: Regular, Normal Sinus Rhythm Gastrointestinal/Abdomen GI Exam: Soft, Non-Tender, Bowel Sounds Present Extremeties Extremities Exam: No Edema Neurologic Neuro Exam: Alert, Awake, Oriented Psychiatric Psych Exam: Appropriate Responses Assessment/Plan Problem List: (1) Acute kidney injury ICD Codes: N17.9 - Acute kidney failure, unspecified Plan: BETSY creatinine of admission at 1.87 and 1.56 today 1.8 Possible related to HTN or renovascular disease. Patient also with NSTEMI Renal US noted Urinalysis is pending Check AICHA,ANCA. Has no proteinuria. Acute kidney injury related to malignant hypertension Blood pressure is better on minoxidil 2.5 mg daily, labetalol 200 mg twice a day ,Amlodipine ,Lasix which will be decreased to 20 mg PO Given his chronic kidney disease and young age he need to aggressively control his blood pressure Increase Labetalol to 300 mg BID. Creatinine is slightly better, 1.5. serology pending. Can be discharged from Nephrology, will need close out patient follow up. (2) NSTEMI (non-ST elevated myocardial infarction) ICD Codes: I21.4 - Non-ST elevation (NSTEMI) myocardial infarction (3) Pneumonia ICD Codes: J18.9 - Pneumonia, unspecified organism Plan: continue antibiotics (4) Hypertension ICD Codes: I10 - Essential (primary) hypertension Rj Melo MD Jun 03, 2017 14:44
[2017-06-03] MEDS: ATORVASTATIN 40 MG TAB PO SCH (21:00)
[2017-06-03] MEDS ORDERED: LABETALOL HCL 200 MG TAB PO SCH (21:00)
--- NOTE | 2017-06-03 22:17 | HHI.PR ---
Subjective Remarks No acute event overnight, no chest pain or shortness breath. He needs to not improved enough for heart, Objective Vitals Vital Signs Date Time Temp Pulse Resp B/P (MAP) Pulse Ox O2 Delivery O2 Flow Rate FiO2 06/03/17 22:00 82 06/03/17 21:00 80 06/03/17 20:14 100 21 06/03/17 20:00 82 06/03/17 20:00 100 Room Air 06/03/17 20:00 98.2 80 16 131/76 (94) 100 06/03/17 19:00 80 06/03/17 18:00 88 06/03/17 17:00 84 06/03/17 16:00 84 06/03/17 15:00 98.0 83 18 125/83 (97) 98 06/03/17 15:00 87 06/03/17 15:00 Room Air 06/03/17 14:00 78 06/03/17 13:00 88 06/03/17 12:00 80 06/03/17 11:46 98.2 77 18 133/83 (100) 98 06/03/17 11:46 Room Air 06/03/17 11:00 80 06/03/17 10:00 78 06/03/17 09:17 100 21 06/03/17 09:07 98.0 84 18 157/109 (125) 99 06/03/17 09:07 Room Air 06/03/17 09:00 72 06/03/17 08:00 82 06/03/17 07:00 75 06/03/17 05:51 86 06/03/17 05:00 85 06/03/17 04:00 Room Air 06/03/17 04:00 91 06/03/17 04:00 98.6 91 18 155/90 (111) 98 06/03/17 03:00 82 06/03/17 02:00 92 06/03/17 01:00 77 06/03/17 00:00 Room Air 06/03/17 00:00 98.1 73 20 135/87 (103) 97 06/03/17 00:00 73 06/02/17 23:00 80 I/O 06/02/17 06/02/17 06/02/17 06/03/17 06/03/17 06/03/17 07:00 15:00 23:00 07:00 15:00 23:00 Intake Total 480 ml 480 ml 480 ml 720 ml Output Total 1775 ml 550 ml 800 ml 1300 ml 850 ml Balance -1295 ml -550 ml -320 ml -820 ml -130 ml Intake Oral 480 ml 480 ml 480 ml 720 ml Output Urine Total 1775 ml 550 ml 800 ml 1300 ml 850 ml # Bowel Movements 0 1 0 Result Diagram: 05/31/17 0635 06/03/17 0615 Objective Remarks GENERAL: This is a well-nourished, well-developed patient, in no apparent distress. CARDIOVASCULAR: Regular rate and rhythm without murmurs, gallops, or rubs. RESPIRATORY: Clear to auscultation. Breath sounds equal bilaterally. No wheezes , rales, or rhonchi. GASTROINTESTINAL: Abdomen soft, non-tender, nondistended. Normal active bowel sounds MUSCULOSKELETAL: Extremities without clubbing, cyanosis, or edema. NEURO: Alert & Oriented x4 to person, place, time, situation. Moves all ext x4 A/P Problem List: (1) CHF (congestive heart failure) ICD Code: I50.9 - Heart failure, unspecified (2) NSTEMI (non-ST elevated myocardial infarction) ICD Code: I21.4 - Non-ST elevation (NSTEMI) myocardial infarction (3) Acute kidney injury ICD Code: N17.9 - Acute kidney failure, unspecified (4) Hypertension ICD Code: I10 - Essential (primary) hypertension (5) Pneumonia ICD Code: J18.9 - Pneumonia, unspecified organism Assessment and Plan 05/31: BNP increased to 847 from 499 with increased creatinine, will check renal ultrasound consult ID and follow with cardiology 06/01: Appreciate cardiology, ID consultation, continue current care, Repeat CBC BMP in a.m., monitor temperature, blood pressure I will add metoprolol and amlodipine for better blood pressure control. 06/02: Continue current care, monitor blood pressure, plan for possibly on Saturday if creatinine improved 06/03: Creatinine stable at 1.51 today, plan is for heart cath will repeat BMP in a.m., appreciate nephrology consultation A/P Mr. Horne is a pleasant 31-year-old male with no significant medical history presents to the emergency department due to one-month long shortness of breath, orthopnea, leg swelling. He complains of cough with sung sputum production. No fever or chills. No night sweats, weight loss. CT PE study indicates groundglass opacity with nodular density likely infectious etiology. Patient's clinical symptoms are consistent with new onset congestive heart failure. New onset congestive heart failure likely systolic. NSTEMI type II - likely due to dyspnea which is due to CHF, acute kidney injury. Troponins are 0.56, 0.54, 0.50. - BNP added later - BNP is 499. - Will consult cardiology. - Start Diuresis with Lasix 40mg IV BID - Will consider beta semaj, ABEL inhibitor once patient gets diuresis. - In the acute heart failure setting, starting Beta semaj must be done with caution. - We will also hold off initiating ABEL inhibitory due to BETSY. - Echocardiogram pending. - We may consider Carvedilol 6.25mg BID and Lisinopril 10mg Qday when plausible to start. Hypertension - Start amlodipine 5 mg daily. Titrate up as needed. - Lasix 40mg IV BID will also help with BP. Acute kidney injury - Creatinine 1.87 on admission. Previously 1.0 in 2014. - Possibly due to hypertensive nephropathy. Although Cardiorenal syndrome is a possibility. - With diuresis we may expect better perfusion to the kidneys. - If BETSY is not improved by 05/31/2017, consider renal US and nephrology consult. Possible pneumonia - CT images reviewed by me - shows ground glass opacity. Left nodular density appreciated. - Will d/c Tamiflu. Patient's flu screen is negative. He had Flu in 2016 - Initially, MRSA pneumonia post flu was suspected. CAP appears to be more likely. D/C Zyvox. - Will continue Levaquin 750 Qday - pharmacy to adjust dose. - DuoNeb PRN. Supplemental O2 PRN. Full code. Lovenox. Telemetry. Morris Kruse MD Jun 03, 2017 22:17
[2017-06-04] VITALS (29 sets, daily range): BP systolic 119–156; BP diastolic 73–102; PULSE 70–90; RESP 16–20; TEMP 97.9–98.6; O2SAT 98–100
[2017-06-04] MEDS: LEVOFLOXACIN 750 MG TAB PO SCH (08:36)
[2017-06-04] MEDS: POTASSIUM CHLORIDE 8 MEQ CAP PO SCH (08:36)
[2017-06-04] MEDS: MINOXIDIL 2.5 MG TAB PO SCH (08:37)
[2017-06-04] MEDS: ASPIRIN EC 81 MG TABEC PO SCH (08:37)
[2017-06-04] MEDS: FUROSEMIDE 40 MG TAB PO SCH (08:37)
[2017-06-04] MEDS: amLODIPine BESYLATE 5 MG TAB PO SCH (08:37)
[2017-06-04] MEDS: SODIUM CHLORIDE 0.9% FLUSH 10 ML FLUSH IV FLUSH SCH ×2 (08:42→22:01)
[2017-06-04] MEDS: LABETALOL HCL 300 MG TAB PO SCH ×2 (09:34→22:00)
[2017-06-04] MEDS: ENOXAPARIN SODIUM 30 MG/0.3 ML SYRINGE SQ SCH (11:56)
--- NOTE | 2017-06-04 14:53 | PD.CARD.PN ---
Subjective Subjective Remarks alert in nad, denies chest pain Objective Medications Current Medications Medications (Trade) Dose Ordered Sig/Mary Route Start Time Stop Time Status Last Admin (Trandate Inj) 10 mg Q20M PRN IV PUSH 05/30/17 06:30 06/02/17 09:18 (NS Flush) 2 ml UNSCH PRN IV FLUSH 05/30/17 10:45 (NS Flush) 2 ml BID IV FLUSH 05/30/17 21:00 06/04/17 08:42 (Tylenol) 650 mg Q4H PRN PO 05/30/17 10:45 (Zofran Inj) 4 mg Q6H PRN IVP 05/30/17 10:45 (Lovenox Inj) 30 mg Q24H SQ 05/30/17 12:00 06/04/17 11:56 (Narcan Inj) 0.4 mg UNSCH PRN IV PUSH 05/30/17 10:45 (Milk Of Magnesia Liq) 30 ml Q12H PRN PO 05/30/17 10:45 (Senokot) 17.2 mg Q12H PRN PO 05/30/17 10:45 (Dulcolax Supp) 10 mg DAILY PRN RECTAL 05/30/17 10:45 (Lactulose Liq) 30 ml DAILY PRN PO 05/30/17 10:45 (Levaquin) 750 mg DAILY PO 05/31/17 09:00 06/07/17 08:59 06/04/17 08:36 (Duoneb Neb) 1 ampule Q4HR NEB PRN NEB 05/30/17 10:45 (Ecotrin Ec) 81 mg DAILY PO 05/31/17 09:00 06/04/17 08:37 (Lipitor) 40 mg HS PO 05/30/17 21:00 06/03/17 21:00 (Norvasc) 10 mg DAILY PO 06/02/17 09:00 06/04/17 08:37 (Vasotec Inj) 1.25 mg Q6H PRN IV PUSH 06/01/17 12:30 (Pill Splitter) 1 ea UNSCH PRN OTHER 06/01/17 12:30 (Loniten) 2.5 mg DAILY PO 06/02/17 09:00 06/04/17 08:37 (Lasix) 40 mg DAILY PO 06/03/17 09:00 06/04/17 08:37 (KCl) 8 meq DAILY PO 06/03/17 09:00 06/04/17 08:36 (Trandate) 300 mg Q12HR PO 06/04/17 09:00 06/04/17 09:34 Vital Signs / I&O Vital Signs Date Time Temp Pulse Resp B/P (MAP) Pulse Ox O2 Delivery O2 Flow Rate FiO2 06/04/17 12:00 85 06/04/17 11:43 97.9 86 16 141/85 (103) 100 06/04/17 11:33 98 06/04/17 11:00 74 06/04/17 10:00 76 06/04/17 09:00 76 06/04/17 09:00 76 06/04/17 08:00 74 06/04/17 08:00 74 06/04/17 07:30 84 06/04/17 07:30 97.9 84 20 156/102 (120) 98 06/04/17 07:00 73 06/04/17 06:00 76 06/04/17 05:00 80 06/04/17 04:00 98.6 88 16 148/96 (113) 99 06/04/17 04:00 70 06/04/17 03:00 75 06/04/17 02:00 80 06/04/17 01:00 75 06/04/17 00:00 76 06/04/17 00:00 98.2 76 16 137/79 (98) 99 06/03/17 23:00 83 06/03/17 22:00 82 06/03/17 21:00 80 06/03/17 20:14 100 21 06/03/17 20:00 82 06/03/17 20:00 100 Room Air 06/03/17 20:00 98.2 80 16 131/76 (94) 100 06/03/17 19:00 80 06/03/17 18:00 88 06/03/17 17:00 84 06/03/17 16:00 84 06/03/17 15:00 98.0 83 18 125/83 (97) 98 06/03/17 15:00 87 06/03/17 15:00 Room Air I/O 06/03/17 06/03/17 06/03/17 06/04/1720/18 2/20/18 07:00 15:00 23:00 07:00 15:00 23:00 Intake Total 480 ml 720 ml 480 ml Output Total 1300 ml 850 ml 550 ml Balance -820 ml -130 ml -70 ml Intake Oral 480 ml 720 ml 480 ml Output Urine Total 1300 ml 850 ml 550 ml # Bowel Movements 1 0 1 Physical Exam GENERAL: SKIN: Warm and dry. HEAD: Normocephalic. EYES: No scleral icterus. No injection or drainage. NECK: Supple, trachea midline. No JVD or lymphadenopathy. CARDIOVASCULAR: Regular rate and rhythm without murmurs, gallops, or rubs. RESPIRATORY: Breath sounds equal bilaterally. No accessory muscle use. GASTROINTESTINAL: Abdomen soft, non-tender, nondistended. MUSCULOSKELETAL: No cyanosis, or edema. BACK: Nontender without obvious deformity. No CVA tenderness. Assessment and Plan Problem List: (1) CHF (congestive heart failure) ICD Codes: I50.9 - Heart failure, unspecified (2) Hypertension ICD Codes: I10 - Essential (primary) hypertension (3) Pneumonia ICD Codes: J18.9 - Pneumonia, unspecified organism (4) NSTEMI (non-ST elevated myocardial infarction) ICD Codes: I21.4 - Non-ST elevation (NSTEMI) myocardial infarction (5) Acute kidney injury ICD Codes: N17.9 - Acute kidney failure, unspecified Assessment and Plan 1.) NSTEMI/cardiomyopathy/htn/arf - [facility] if/when renal function stabilize, continue medical management(aspirin, minoxidil, labetolol, norvasc, lasix), renal following, scr pending today at writing of this note Dax Spain MD Jun 04, 2017 14:53
--- NOTE | 2017-06-04 15:45 | HHI.NPPN ---
Subjective General Problems: Hypertension History of Present Illness Patient is a 31-year-old male with malignant hypertension and chronic kidney disease. Additional Remarks Patient is resting comfortably. No SOB. No Edema (Liz Jiang) Review of Systems Respiratory Respiratory Remarks No SOB (Liz Jiang) Cardiovascular Cardiac Remarks CP (Liz Jiang) Gastrointestinal GI Remarks No abdominal pain (Liz Jiang) Objective Data Data Vital Signs Date Time Temp Pulse Resp B/P (MAP) Pulse Ox O2 Delivery O2 Flow Rate FiO2 06/04/17 12:00 85 06/04/17 11:43 97.9 86 16 141/85 (103) 100 06/04/17 11:33 98 06/04/17 11:00 74 06/04/17 10:00 76 06/04/17 09:00 76 06/04/17 09:00 76 06/04/17 08:00 74 06/04/17 08:00 74 06/04/17 07:30 84 06/04/17 07:30 97.9 84 20 156/102 (120) 98 06/04/17 07:00 73 06/04/17 06:00 76 06/04/17 05:00 80 06/04/17 04:00 98.6 88 16 148/96 (113) 99 06/04/17 04:00 70 06/04/17 03:00 75 06/04/17 02:00 80 06/04/17 01:00 75 06/04/17 00:00 76 06/04/17 00:00 98.2 76 16 137/79 (98) 99 06/03/17 23:00 83 06/03/17 22:00 82 06/03/17 21:00 80 06/03/17 20:14 100 21 06/03/17 20:00 82 06/03/17 20:00 100 Room Air 06/03/17 20:00 98.2 80 16 131/76 (94) 100 06/03/17 19:00 80 06/03/17 18:00 88 06/03/17 17:00 84 06/03/17 16:00 84 (Liz Jiang) -: 05/31/17 0635 06/03/17 0615 Imaging Last Impressions Renal Ultrasound 05/31/17 0000 Signed Impressions: Service Date/Time: Wednesday, May 31, 2017 13:44 - CONCLUSION: 1. No findings to indicate renal obstruction identified. 2. The echogenicity of the kidneys appears within normal limits bilaterally. Manuel Dimas MD Gall Bladder Ultrasound 05/31/17 0000 Signed Impressions: Service Date/Time: Wednesday, May 31, 2017 08:17 - CONCLUSION: 1. Mild diffusely increased hepatic echogenicity without volume loss consistent with hepatic steatosis versus medical liver disease. 2. Otherwise, unremarkable right quadrant ultrasound examination. Specifically, no cholelithiasis or evidence for cholecystitis. Monroe Boo MD CT Angiography 05/30/17 0000 Signed Impressions: Service Date/Time: May 05:52 - CONCLUSION: 1. Bilateral groundglass infiltrates are noted bilaterally including several groundglass nodular opacities measuring up to 2.6 cm and the right lung. Infectious etiology is favored. 2. No evidence for pulmonary embolism. 3. Small pericardial effusion. 4. Mediastinal and bilateral hilar adenopathy. 5. CT chest is recommended after appropriate clinical therapy in 3 months time to ensure resolution. Deni Guido MD (Liz Jiang) Physical Exam General Appearance: Well Developed, Well Nourished (Liz Jiang. LADLER) Eyes Eye Exam: Pupils Equal (Liz JiangP) Throat Throat Exam: Oral Mucosa [place] & Moist (Liz JiangP) Neck Neck Exam: Neck Supple (Liz Jiang LADLER) Pulmonary Resp Exam: Clear Bilaterally, Breath Sounds Equal (Liz Jiang. LADLER) Cardiology CV Exam: Regular, Normal Sinus Rhythm (Liz JiangP) Gastrointestinal/Abdomen GI Exam: Soft, Non-Tender, Bowel Sounds Present (Liz Jiang) Extremeties Extremities Exam: No Edema (Liz JiangP) Neurologic Neuro Exam: Alert, Awake, Oriented (Liz JiangP) Psychiatric Psych Exam: Appropriate Responses (Liz Jiang) Assessment/Plan Problem List: (1) Acute kidney injury ICD Codes: N17.9 - Acute kidney failure, unspecified Plan: Acute kidney injury related to malignant hypertension Patient also with NSTEMI Renal US noted serology pending Given his chronic kidney disease and young age he need to aggressively control his blood pressure Blood pressure better controlled on minoxidil 2.5 mg daily, labetalol 300 mg twice a day ,and Amlodipine Stable from Nephrology stand point, will need close out patient follow up. Per patient possible heart cath tomorrow (2) NSTEMI (non-ST elevated myocardial infarction) ICD Codes: I21.4 - Non-ST elevation (NSTEMI) myocardial infarction (3) Pneumonia ICD Codes: J18.9 - Pneumonia, unspecified organism Plan: continue antibiotics (4) Hypertension ICD Codes: I10 - Essential (primary) hypertension (Liz Jiang) Problem List: (1) Acute kidney injury ICD Codes: N17.9 - Acute kidney failure, unspecified Plan: Acute kidney injury related to malignant hypertension Patient also with NSTEMI Renal US noted serology pending Given his chronic kidney disease and young age he need to aggressively control his blood pressure Blood pressure better controlled on minoxidil 2.5 mg daily, labetalol 300 mg twice a day ,and Amlodipine Stable from Nephrology stand point, will need close out patient follow up. Per patient possible heart cath tomorrow. Patient seen and examined, agree with above. Follow the urine out put and BMP. (2) NSTEMI (non-ST elevated myocardial infarction) ICD Codes: I21.4 - Non-ST elevation (NSTEMI) myocardial infarction (3) Pneumonia ICD Codes: J18.9 - Pneumonia, unspecified organism Plan: continue antibiotics (4) Hypertension ICD Codes: I10 - Essential (primary) hypertension (Rj Melo MD) Liz Jiang Jun 04, 2017 15:45 Rj Melo MD Jun 04, 2017 17:20
--- NOTE | 2017-06-04 17:47 | HHI.PR ---
Subjective Remarks Today patient laying in bed doing well no acute complaint Creatinine on BMP is still pending as of the time of writing this note However nephrology probably allow him to go for heart-Cath tomorrow Objective Vitals Vital Signs Date Time Temp Pulse Resp B/P (MAP) Pulse Ox O2 Delivery O2 Flow Rate FiO2 06/04/17 17:34 98 21 06/04/17 16:00 82 06/04/17 15:20 98.4 89 17 119/73 (88) 98 06/04/17 15:00 81 06/04/17 14:00 84 06/04/17 13:00 78 06/04/17 12:00 85 06/04/17 11:43 97.9 86 16 141/85 (103) 100 06/04/17 11:33 98 06/04/17 11:00 75 06/04/17 11:00 74 06/04/17 10:00 76 06/04/17 09:00 76 06/04/17 09:00 76 06/04/17 08:00 74 06/04/17 08:00 74 06/04/17 07:30 84 06/04/17 07:30 97.9 84 20 156/102 (120) 98 06/04/17 07:00 73 06/04/17 06:00 76 06/04/17 05:00 80 06/04/17 04:00 98.6 88 16 148/96 (113) 99 06/04/17 04:00 70 06/04/17 03:00 75 06/04/17 02:00 80 06/04/17 01:00 75 06/04/17 00:00 76 06/04/17 00:00 98.2 76 16 137/79 (98) 99 06/03/17 23:00 83 06/03/17 22:00 82 06/03/17 21:00 80 06/03/17 20:14 100 21 06/03/17 20:00 82 06/03/17 20:00 100 Room Air 06/03/17 20:00 98.2 80 16 131/76 (94) 100 06/03/17 19:00 80 06/03/17 18:00 88 I/O 06/03/17 06/03/17 06/03/17 06/04/17 06/04/17 06/04/17 07:00 15:00 23:00 07:00 15:00 23:00 Intake Total 480 ml 720 ml 480 ml Output Total 1300 ml 850 ml 550 ml Balance -820 ml -130 ml -70 ml Intake Oral 480 ml 720 ml 480 ml Output Urine Total 1300 ml 850 ml 550 ml # Bowel Movements 1 0 1 Result Diagram: 05/31/17 0635 06/03/17 0615 Objective Remarks GENERAL: This is a well-nourished, well-developed patient, in no apparent distress. CARDIOVASCULAR: Regular rate and rhythm without murmurs, gallops, or rubs. RESPIRATORY: Clear to auscultation. Breath sounds equal bilaterally. No wheezes , rales, or rhonchi. GASTROINTESTINAL: Abdomen soft, non-tender, nondistended. Normal active bowel sounds MUSCULOSKELETAL: Extremities without clubbing, cyanosis, or edema. NEURO: Alert & Oriented x4 to person, place, time, situation. Moves all ext x4 A/P Problem List: (1) CHF (congestive heart failure) ICD Code: I50.9 - Heart failure, unspecified (2) NSTEMI (non-ST elevated myocardial infarction) ICD Code: I21.4 - Non-ST elevation (NSTEMI) myocardial infarction (3) Acute kidney injury ICD Code: N17.9 - Acute kidney failure, unspecified (4) Hypertension ICD Code: I10 - Essential (primary) hypertension (5) Pneumonia ICD Code: J18.9 - Pneumonia, unspecified organism Assessment and Plan 06/04: Patient has been waiting for his kidney function improved prior to do a heart cath, urology cardiology and ID on board, BMP still pending today however cleared by renal to go to our cath possibly tomorrow A/P Mr. Horne is a pleasant 31-year-old male with no significant medical history presents to the emergency department due to one-month long shortness of breath, orthopnea, leg swelling. He complains of cough with sung sputum production. No fever or chills. No night sweats, weight loss. CT PE study indicates groundglass opacity with nodular density likely infectious etiology. Patient's clinical symptoms are consistent with new onset congestive heart failure. New onset congestive heart failure likely systolic. NSTEMI type II - likely due to dyspnea which is due to CHF, acute kidney injury. Troponins are 0.56, 0.54, 0.50. - BNP added later - BNP is 499. - Will consult cardiology. - Start Diuresis with Lasix 40mg IV BID - Will consider beta semaj, ABEL inhibitor once patient gets diuresis. - In the acute heart failure setting, starting Beta semaj must be done with caution. - We will also hold off initiating ABEL inhibitory due to BETSY. - Echocardiogram pending. - We may consider Carvedilol 6.25mg BID and Lisinopril 10mg Qday when plausible to start. Hypertension - Start amlodipine 5 mg daily. Titrate up as needed. - Lasix 40mg IV BID will also help with BP. Acute kidney injury - Creatinine 1.87 on admission. Previously 1.0 in 2014. - Possibly due to hypertensive nephropathy. Although Cardiorenal syndrome is a possibility. - With diuresis we may expect better perfusion to the kidneys. - If BETSY is not improved by 05/31/2017, consider renal US and nephrology consult. Possible pneumonia - CT images reviewed by nm - shows ground glass opacity. Left nodular density appreciated. - Will d/c Tamiflu. Patient's flu screen is negative. He had Flu in 2016 - Initially, MRSA pneumonia post flu was suspected. CAP appears to be more likely. D/C Zyvox. - Will continue Levaquin 750 Qday - pharmacy to adjust dose. - DuoNeb PRN. Supplemental O2 PRN. Full code. Lovenox. Telemetry. Discharge Planning When stable after heart catheterization cleared by nephrology and cardiology Morris Kruse MD Jun 04, 2017 17:47
[2017-06-04 19:04] LABS: BICARBONATE 30.2 MEQ/L (21.0-32.0); CALCIUM 8.7 MG/DL (8.5-10.1); CREATININE 1.56 MG/DL (0.60-1.30)
[2017-06-04] MEDS: ATORVASTATIN 40 MG TAB PO SCH (22:01)
[2017-06-05] VITALS (26 sets, daily range): BP systolic 125–180; BP diastolic 67–115; PULSE 71–88; RESP 18–20; TEMP 97.8–98.4; O2SAT 98–100
[2017-06-05 07:02] LABS: BICARBONATE 31.3 MEQ/L (21.0-32.0); CALCIUM 8.7 MG/DL (8.5-10.1); CREATININE 1.4 MG/DL (0.60-1.30)
[2017-06-05] MEDS: SODIUM CHLORIDE 0.9% FLUSH 10 ML FLUSH IV FLUSH SCH ×2 (08:35→22:16)
[2017-06-05] MEDS: MINOXIDIL 2.5 MG TAB PO SCH (08:36)
[2017-06-05] MEDS: ASPIRIN EC 81 MG TABEC PO SCH (08:36)
[2017-06-05] MEDS: POTASSIUM CHLORIDE 8 MEQ CAP PO SCH (08:36)
[2017-06-05] MEDS: FUROSEMIDE 40 MG TAB PO SCH (08:37)
[2017-06-05] MEDS: LEVOFLOXACIN 750 MG TAB PO SCH (08:37)
[2017-06-05] MEDS: amLODIPine BESYLATE 5 MG TAB PO SCH (08:37)
[2017-06-05] MEDS: LABETALOL HCL 300 MG TAB PO SCH ×2 (08:37→22:15)
[2017-06-05] MEDS ORDERED: cloNIDine HCL 0.1 MG TAB PO PRN (09:00)
--- NOTE | 2017-06-05 09:26 | HHI.NPPN ---
Subjective General Problems: Hypertension History of Present Illness Patient is a 31-year-old male with malignant hypertension and chronic kidney disease. Additional Remarks Patient is resting comfortably. No SOB. No Edema. No CP (Liz Jiang) Review of Systems Respiratory Respiratory Remarks No SOB (Liz Jiang) Cardiovascular Cardiac Remarks CP (Liz Jiang) Gastrointestinal GI Remarks No abdominal pain (Liz Jiang) Objective Data Data Vital Signs Date Time Temp Pulse Resp B/P (MAP) Pulse Ox O2 Delivery O2 Flow Rate FiO2 06/05/17 09:00 84 06/05/17 08:00 82 06/05/17 07:00 82 06/05/17 07:00 76 06/05/17 07:00 97.8 82 20 180/115 (136) 98 06/05/17 06:00 76 06/05/17 05:00 76 06/05/17 04:00 98.4 75 18 143/96 (112) 99 06/05/17 04:00 78 06/05/17 03:00 84 06/05/17 02:00 86 06/05/17 01:00 74 06/05/17 00:00 98.1 83 18 141/86 (104) 99 06/05/17 00:00 79 06/04/17 23:00 76 06/04/17 22:00 86 06/04/17 21:00 90 06/04/17 20:00 98.2 79 18 133/86 (102) 99 06/04/17 20:00 83 06/04/17 19:00 82 06/04/17 18:00 86 06/04/17 17:34 98 21 06/04/17 17:00 88 06/04/17 16:00 82 06/04/17 15:20 98.4 89 17 119/73 (88) 98 06/04/17 15:00 81 06/04/17 14:00 84 06/04/17 13:00 78 06/04/17 12:00 85 06/04/17 11:43 97.9 86 16 141/85 (103) 100 06/04/17 11:33 98 06/04/17 11:00 75 06/04/17 11:00 74 06/04/17 10:00 76 (Liz Jiang) -: 06/05/17 0523 Physical Exam General Appearance: Well Developed, Well Nourished, No Acute Distress, Comfortable (Liz Jiang) Eyes Eye Exam: Pupils Equal (Liz Jiang) Throat Throat Exam: Oral Mucosa Manlius & Moist (Liz Jiang) Neck Neck Exam: Neck Supple (Liz Jiang) Pulmonary Resp Exam: Clear Bilaterally, Breath Sounds Equal (Liz Jiang) Cardiology CV Exam: Regular, Normal Sinus Rhythm (Liz Jiang) Gastrointestinal/Abdomen GI Exam: Soft, Non-Tender, Bowel Sounds Present (Liz Jiang) Extremeties Extremities Exam: No Edema (Liz Jiang) Neurologic Neuro Exam: Alert, Awake, Oriented (Liz Jiang) Psychiatric Psych Exam: Appropriate Responses (Liz Jiang) Assessment/Plan Discussed Condition With: Patient Problem List: (1) Acute kidney injury ICD Codes: N17.9 - Acute kidney failure, unspecified Plan: Acute kidney injury related to malignant hypertension Patient also with NSTEMI Renal US noted serology pending Given his chronic kidney disease and young age he need to aggressively control his blood pressure Blood pressure better controlled on minoxidil 2.5 mg daily, labetalol 300 mg twice a day ,and Amlodipine Stable from Nephrology stand point, will need close out patient follow up. Continue to follow the urine out put and BMP. Creatinine today at 1.4 and GFR of 72 ml/min (2) NSTEMI (non-ST elevated myocardial infarction) ICD Codes: I21.4 - Non-ST elevation (NSTEMI) myocardial infarction (3) Pneumonia ICD Codes: J18.9 - Pneumonia, unspecified organism Plan: continue antibiotics (4) Hypertension ICD Codes: I10 - Essential (primary) hypertension (Liz Jiang) Problem List: (1) Acute kidney injury ICD Codes: N17.9 - Acute kidney failure, unspecified Plan: Acute kidney injury related to malignant hypertension Patient also with NSTEMI Renal US noted serology pending Given his chronic kidney disease and young age he need to aggressively control his blood pressure Blood pressure better controlled on minoxidil 2.5 mg daily, labetalol 300 mg twice a day ,and Amlodipine Stable from Nephrology stand point, will need close out patient follow up. Continue to follow the urine out put and BMP. Creatinine today at 1.4 and GFR of 72 ml/min. Patient seen and examined, agree wit above. Cardiac Cath results noted. Once Creatinine is stable, can start ACEI/ARB. Renin and Erik. normal. (2) NSTEMI (non-ST elevated myocardial infarction) ICD Codes: I21.4 - Non-ST elevation (NSTEMI) myocardial infarction (3) Pneumonia ICD Codes: J18.9 - Pneumonia, unspecified organism Plan: continue antibiotics (4) Hypertension ICD Codes: I10 - Essential (primary) hypertension (Rj Melo MD) Liz Jiang Jun 05, 2017 09:26 Rj Melo MD Jun 05, 2017 15:15
[2017-06-05 10:55] LABS: RENIN 3.5 ng/mL/h
[2017-06-05] MEDS ORDERED: MIDAZOLAM HCL 2 MG/2 ML VIAL ONE (12:25)
[2017-06-05] MEDS ORDERED: HEPARIN-NS/PF FLUSH BAG 1,000 ML IV FLUSH ONE (12:25)
--- NOTE | 2017-06-05 13:19 | CATHPROC ---
[employer] HIS Report Study Information Study Number Admission Scheduled Start Study Start [id number] May 30 2017 6:39AM 06/05/2017 Jun 05 2017 12:19PM [place] [facility] Cardiac Catheterization Admit Source Facility Department Other [facility] Worker Physician and Clinical Staff Initial MD Spain, [facility] Liaison Karol Cedillo,RN Recorder Yunior KAPOOR, Aston Quarles,RT(R) Procedures Performed Procedure Location (Site) Vessel Name Angiogram LV LV Ventricle Coronary Angiograms LCA Left Coronary Coronary Angiograms RCA Right Coronary Equipment Time Drivers License Examiner Description Size Mfg Part Number Used/Scraped CATHETER, FR5 SWAN BRYAN 12:36 DESIR RIVERA FR 5 [id number] *[id number] Used MONITOR TRANSDUCER, TRUWAVE [id number] 12:36 DESIR RIVERA * Used W/STOCKCOCK *[id number] [id number] *[id number] [id number] *[id number] [id number] *[id number] 12:36 MEDLINE IND[employer]ES PACK, CCL CUSTOM * Used *[id number] 12:36 [id number] PACER PEN, SKIN DUAL W/ RULER * Used *[id number] 12:36 [employer] MEDICAL SHEATH, FR5.5 PRELUDE 11CM FR 5.5 Used 038ACT# [id number] 12:36 [employer] MEDICAL WIRE, 3MMJ .035 180CM 180CM Used *[id number] 12:36 NAMIC MANIFOLD, 4 PORT * Used *[id number] 12:36 NYCOMED OMNIPAQUE, 350 MG, 150ML 150ML [id number] Used [id number] 12:36 [employer]ENNING MEDICAL BLANKET,WARM AIR CCL * Used *[id number] 12:36 TERUMO MEDICAL SHEATH, FR4 TERUMO (10CM) FR 4 Used *[id number] History: Allergies Allergy Reaction NKDA History: Risk Factors Family History of Hypertension Dyslipidemia Previous ID Previous Heart Failure Premature CAD Yes No Yes No No Prior Valve Prior PCI Prior CABG Surgery No No No Cerebrovascular Peripheral Artery Chronic Lung On Dialysis Diabetes Disease Disease Disease No No No No No History: Stress Tests Stress or Imaging Studies Performed No History: Other Current Smoker No Regular Diet Yes Labs Hgb (g/dl) Hct (%) WBC (l/cumm) Platelets (thousands) 11.60-17.00 35.00-51.00 4.00-11.00 150.00-450.00 13.0 39 14.5 365 Glucose (mg/dl) BUN (mg/dl) Creatinine (mg/dl) BUN:Creatinine (1:x) 74.00-106.00 7.00-18.00 0.50-1.30 10.00-20.00 77 13 1.4 9.3 Na (meq/l) K (meq/l) 136.00-145.00 3.50-5.10 140 3.4 Troponin I (ng/ml) CPK-MB (ng/ML) 0.02-0.05 0.50-3.60 0.56 3.1 Medication Medication Total Dose (Bolus/Oral) Medication Total Dosage/Unit 1% XYLOCAINE 20 mL VERSED 1 mg Medications (Bolus/Oral) Medication Time Given Dosage/Unit Administered By Reason 1% XYLOCAINE 06/05/2017 12:50:20 PM 20 mL Dax Spain 20 mL 1% XYLOCAINE given in lab by Dax Spain in Right Groin via Subcutaneous. VERSED 06/05/2017 12:53:38 PM 1 mg Karol Cedillo 1 mg VERSED given in lab by Karol Cedillo, RN via Peripheral IV. Initial Case Assessment Cardiovascular HR NIBP Chest Pain 90 146/93 0 Edema Present Skin color Skin None Normal Warm Dry Circulatory - Right Pulses Dorsalis Pedis Femoral 2 2 Scale (0,1,2,3,4,d) Circulatory - Left Pulses Dorsalis Pedis Femoral 2 2 Scale (0,1,2,3,4,d) Circulatory - Lower Extremities Color Lower Right Color Lower Left Normal Normal Neurological State Oriented to time-place- Alert Moves all extremities person Respiration - General Respiration Rate SpO2 (%) O2 (lpm) (B/min) 15 100 0 Final Case Assessment Neurological State Oriented to time-place- Alert Moves all extremities person Chronological Log Time Study Chronological Log 12:19:37 Patient arrived via Bed. 12:19:39 Patient Name, D.O.B, / Armband Verified By R.N. 12:19:40 Consent signed by the physician and the patient and verified by the [facility] Worker staff. 12:19:42 Pre-op and post- op instructions given; patient acknowledges understanding of instructions. 12:23:22 Table restraints applied according to hospital policy Vitals capture started with the following parameters, Patient=Adult, Interval=5 min, Initial Pr wovlwx=483 mmHg, 12:27:59 Deflation Rate=5 mmHg, Cuff placed on Left Arm 12:28:05 Reference ECG taken 12:29:07 HR=88 bpm, IUMW=051/94 mmhg, IhV5=895.0 %, Resp=20 B/min, Pinto=2 12:30:42 Patient has been NPO for Less than 6Hrs. 12:30:45 Skin Breakdown- none 12:32:43 Presedation assessment performed by [facility] Worker RN. 12:33:37 HR=90 bpm, TDHB=916/93 mmhg, BsX7=575.0 %, Resp=16 B/min, Pinto=2 12:34:21 Patient Warmer Placed on the Table. 12:34:30 History and physical on the chart or being dictated. Assessment: Initial Case, HR=90 BPM, HFAE=240/93 mmhg, Chest Pain=0, Edema=None, Color=Normal, Skin = Warm, Dry Right Pulses: Ike Ped=2, Femoral=2 Left Pulses: Ike Ped=2, Femoral=2 12:34:33 Lower Right Extremities: Color=Normal Lower Left Extremities: Color=Normal Neurological: State=Alert, Ox3, FINN Respiration: Resp=15 B/min, VtH4=844 %, O2=0 lpm 12:38:35 Right and Left groin prepped with 2% chlorhexidine, and draped after a 3 min. waiting time. 12:38:38 HR=90 bpm, IYIV=465/90 mmhg, NhF1=633.0 %, Resp=16 B/min, Pnito=2 12:43:37 HR=90 bpm, ZGRK=963/87 mmhg, NmY9=520.0 %, Resp=13 B/min, Pinto=2 12:44:58 MD paged 12:45:08 MD responded 12:46:23 MD arrived. 12:47:26 A # 20 IV was noted in the Antecubital (left). IV not patent on arrival to lab technologist 12:48:38 HR=91 bpm, UAPU=240/89 mmhg, Resp=14 B/min, Pinto=2 12:48:52 Pressure channel 1 zeroed. Time Out. Correct patient, correct procedure, correct physician, power injector loaded, or not loaded with contrast with 12:50:10 surgical team present. Time Out Concurred by MD and individual staff in procedure. 12:50:16 Case Start 12:50:20 20 mL 1% XYLOCAINE given in lab by Dax Spain in Right Groin via Subcutaneous. 12:51:09 Access site was Right Femoral Artery. 12:51:25 A SHEATH, FR4 TERUMO (10CM) FR 4 was advanced into the Fem Art (right) using the Modified S eldinger technique. 12:51:42 Saturation: Site=Ao (Aorta) , O2=99.6 %, Hgb=13 gm/dl, Condition=Condition 1. Used in [facility]. 12:52:14 Access site was Right Femoral Vein. 12:52:23 A SHEATH, FR5.5 PRELUDE 11CM FR 5.5 was advanced into the Fem Vein (right) using the Percut aneous technique. 12:53:22 IVF to venous sheath at KVO 12:53:38 1 mg VERSED given in lab by Karol Cedillo, RN via Peripheral IV. 12:53:39 HR=93 bpm, AEKQ=169/97 mmhg, ApW8=388.0 %, Resp=18 B/min, Pinto=2 12:53:50 A CATHETER, FR5 SWAN BRYAN MONITOR FR 5 was inserted via Fem Vein (right) Recorded Pressure: PCW, HR=94, Condition=Condition 1 12:54:24 (Pulmonary Capillary Wedge) PCW 26/24/22 Recorded Pressure: MPA, HR=93, Condition=Condition 1 12:54:49 (Main Pulmonary Artery) MPA 44/23/32 12:55:30 Saturation: Site=PA (Pulmonary Artery) , O2=68.6 %, Hgb=13 gm/dl, Condition=Condition 1. Us ed in calculation. Recorded Pressure: RV, HR=92, Condition=Condition 1 12:55:59 (Right Ventricle) RV 46/12/15 Recorded Pressure: RA, HR=91, Condition=Condition 1 12:56:14 (Right Atrium) RA 18/13/12 12:56:50 [place] Catheter Removed A JR 4.0 INFINITI CATHETER FR 4 was advanced over a wire. OMNIPAQUE, 350 MG, 150ML 150ML was us ed for 12:56:58 injections. Recorded Pressure: LV, HR=95, Condition=Condition 1 12:57:45 (Left Ventricle) LV 110/37/46 Recorded Pressure: LV, Ao, HR=90, Condition=Condition 1 12:58:06 (Left Ventricle) LV 124/7/18, (Aorta) Ao 131/95/110 12:58:15 Saturation: Site=RA (Right Atrium) , O2=72.4 %, Hgb=13 gm/dl, Condition=Condition 1. Used in calculation. 12:58:34 The LV was injected at 10 cc/sec for a total of 10. OMNIPAQUE, 350 MG, 150ML 150ML used. 12:58:42 HR=90 bpm, UKON=836/85 mmhg, Resp=13 B/min, Pinto=3 12:58:50 Catheter was removed 12:59:04 The RCA was injected and visualized at various angles. OMNIPAQUE, 350 MG, 150ML 150ML use d. A JL 4.0 INFINITI CATHETER FR 4 was advanced over a wire. OMNIPAQUE, 350 MG, 150ML 150ML was u sed for 12:59:19 injections. 12:59:43 The LCA was injected and visualized at various angles. OMNIPAQUE, 350 MG, 150ML 150ML use d. Recorded Pressure: Ao, HR=89, Condition=Condition 1 13:00:01 (Aorta) Ao 128/95/110 13:01:57 Catheter was removed 13:02:12 Case End Assessment: Final Case 13:03:16 Neurological: State=Alert, Ox3, FINN 13:03:39 HR=93 bpm, GEOT=212/92 mmhg, RgU0=204.0 %, Resp=12 B/min, Pinto=2 13:08:28 Sheath(s) left in place, will be removed in Holding Area 13:08:33 Sterile dressing applied to site 13:08:35 No case complications noted. 13:08:40 HR=93 bpm, RTYB=880/86 mmhg, SpO2=99.0 %, Resp=12 B/min, Pinto=2 13:08:52 Holding Area notified of successful intervention. 13:08:55 Bedside Report will be given. 13:09:03 A Left and Right Heart Cath was performed. 13:12:32 Vitals capture stopped. 13:12:42 Patient moved to stretcher End Study - Contrast Media Used In Study Contrast Total Opened (mL) Total Used (mL) Total Wasted (mL) Omnipaque 50 20 30 End Study - Maximum Contrast Load Max Contrast Load (mL) 344.6 End Study - Radiation Exposure Fluoro Time (minutes) 1.3 End Study - Patient Disposition Complications Transferred To Telemetry Bed
--- NOTE | 2017-06-05 13:32 | MA ---
cc: DIXIE BERRIOS M.D. DATE 06/05/2017 PROCEDURE PERFORMED Right heart catheterization, left heart catheterization, left ventriculography, coronary artery. NOTE The patient is cleared for cardiac catheterization by renal. INDICATIONS Non-STEMI cardiomyopathy, congestive heart failure, [place] Heart Association class III for congestive heart failure, malignant hypertension, acute renal failure and coronary artery disease. PROCEDURE NOTE The patient was brought to the cardiac catheterization laboratory, prepped and draped in the usual sterile fashion. 10 cc's of 1% lidocaine was used to locally anesthetize the right common femoral artery. A 4-Paraguayan sheath placed in the right common femoral artery. A 4-[place] JR-4, JL-4 catheters were used to perform left and right coronary angiography, left ventriculography. Right heart catheterization was performed first with the following findings: Pulmonary capillary wedge pressure was 26/24/22. PA pressure 44/23-32. RV pressure 46/12-15. RA pressure 18/13-12. On room air: FA sat 99.6%. PA sat 68.6%. RA sat 72.4%. By Yasmani, the cardiac output is 4.7 liters per minute. Cardiac index is 2.3 liters per meter squared per minute. SVR is 1653 dynes. Left heart catheterization was then performed with a 4-[place]ayan JR-4, JL-4 catheter with following findings: LV pressure is 120/10-12. Ejection fraction is 40%. There is global hypokinesis. No obvious focal segmental wall motion abnormalities. The right coronary artery has an inferior takeoff. It is a relatively small vessel 2.5-2.75 mm reference vessel diameter. It appears to be nondominant or codominant. I cannot see a definite PDA coming of the right coronary artery. Left main coronary artery has no significant disease angiographically. Left circumflex vessel has mild disease in the proximal segment up to 10-20% angiographically. Ramus intermedius was a high diagonal and the ramus intermedius vessel which is large reference vessel diameter of 3 mm in diameter. Mild disease in the proximal segment up to 10 to 20% angiographically. LAD is a large transapical vessel. It wraps around the apex and supplies the entire inferior wall back to the posterior wall. The LAD is a large vessel with a reference vessel diameter throughout most of its length of 3.5 to 4 mm. There is mild disease in the proximal mid segment up to 10% angiographically. CONCLUSION 1. Angiographically mild two-vessel coronary disease in a left dominant system. 2. Atypical anatomy with the PDA essentially being supplied by the LAD with a nondominant right coronary artery and a nondominant left circumflex vessel coronary artery. 3. Cardiomyopathy at 40%. 4. Elevated port capillary wedge pressure with moderate pulmonary hypertension as detailed above. 5. Cardiac index of 2.3 liters/meters squared/minute by Yasmani. 6. Increases SVR equal to 1653 dynes. 7. Recommend medical management of coronary artery disease. 8. Continue medical management of hypertension, cardiomyopathy. ABEL inhibitor and ARB are currently being held due to acute renal failure. Renal is managing the patient's blood pressure and renal meds at the current time. At this point in time, I told the patient that he can no longer lift more than 20 pounds at this time due to his moderate to severe cardiomyopathy. MD LUANA Vasquez/LEXUS /1:06 PM /1:17 PM
[2017-06-05] MEDS ORDERED: BACITRACIN OINT 0.9 GM PKT TOP ONE (14:00)
[2017-06-05] MEDS ORDERED: MISC INFORMATION XX ONE (14:00)
[2017-06-05] MEDS ORDERED: SODIUM CHLORIDE 0.9% FLUSH 10 ML FLUSH IV FLUSH PRN (14:00)
[2017-06-05] MEDS ORDERED: IOHEXOL 350 MG/ML 50 ML BTL (for Cath Lab) OTHER ONE (14:24)
--- NOTE | 2017-06-05 16:50 | HHI.PR ---
Subjective Remarks Patient seen after her. No acute distress. Cardiomyopathy could be genetic as patient has a strong cardiac history in his family. Additionally he she had the influenza virus 10 days previous to hospitalization so that could be a viral cardiomyopathy also. Objective Vital Signs Date Time Temp Pulse Resp B/P (MAP) Pulse Ox O2 Delivery O2 Flow Rate FiO2 06/05/17 14:00 71 06/05/17 13:57 98.0 71 18 147/87 (107) 99 06/05/17 12:00 74 06/05/17 12:00 98.0 78 20 135/67 (89) 99 06/05/17 11:00 76 06/05/17 11:00 76 06/05/17 11:00 97.8 82 20 140/78 (98) 98 06/05/17 10:00 82 06/05/17 09:20 144/82 (102) 06/05/17 09:00 84 06/05/17 08:00 82 06/05/17 07:00 76 06/05/17 07:00 97.8 82 20 180/115 (136) 98 06/05/17 06:00 76 06/05/17 05:00 76 06/05/17 04:00 98.4 75 18 143/96 (112) 99 06/05/17 04:00 78 06/05/17 03:00 84 06/05/17 02:00 86 06/05/17 01:00 74 06/05/17 00:00 98.1 83 18 141/86 (104) 99 06/05/17 00:00 79 06/04/17 23:00 76 06/04/17 22:00 86 06/04/17 21:00 90 06/04/17 20:00 98.2 79 18 133/86 (102) 99 06/04/17 20:00 83 06/04/17 19:00 82 06/04/17 18:00 86 06/04/17 17:34 98 21 06/04/17 17:00 88 I/O 06/04/17 06/04/17 06/04/17 06/05/17 06/05/17 06/05/17 07:00 15:00 23:00 07:00 15:00 23:00 Intake Total 480 ml 800 ml 240 ml 240 ml Output Total 550 ml 850 ml 600 ml Balance -70 ml -50 ml -360 ml 240 ml Intake Oral 480 ml 800 ml 240 ml 240 ml Output Urine Total 550 ml 850 ml 600 ml # Bowel Movements 1 0 Result Diagram: 06/05/17 0523 Objective Remarks GENERAL: NAD, A&Ox3 HEAD: Normocephalic. NECK: Supple, trachea midline. No lymphadenopathy. EYES: No scleral icterus. No injection or drainage. CARDIOVASCULAR: Regular rate and rhythm without murmurs, gallops, or rubs. RESPIRATORY: Breath sounds equal bilaterally. No accessory muscle use. GASTROINTESTINAL: Abdomen soft, non-tender, nondistended. MUSCULOSKELETAL: No cyanosis, or edema. SKIN: Warm and dry. NEURO: No focal neurological deficitis. A/P Problem List: (1) Pneumonia and influenza ICD Code: J11.00 - Influenza due to unidentified influenza virus with unspecified type of pneumonia (2) Acute kidney injury ICD Code: N17.9 - Acute kidney failure, unspecified (3) NSTEMI (non-ST elevated myocardial infarction) ICD Code: I21.4 - Non-ST elevation (NSTEMI) myocardial infarction (4) Pneumonia ICD Code: J18.9 - Pneumonia, unspecified organism (5) Hypertension ICD Code: I10 - Essential (primary) hypertension (6) CHF (congestive heart failure) ICD Code: I50.9 - Heart failure, unspecified Assessment and Plan 31-year-old male admitted secondary to shortness of breath and leg swelling, new onset CHF/cardiomyopathy. New onset congestive heart failure, systolic NSTEMI type II Etiology may be related to a strong cardiac history in his family tree or Cardiology following Continue diuretics ABEL inhibitor plan Beta semaj plan Continue Lasix Acute kidney injury Monitor renal function Improving through time Avoid nephrotoxins Hypertension Continue amlodipine Continue diuresis Possible pneumonia Continue Levaquin Oxygen as needed Breathing treatments as needed DVT prophylaxis Manuel Vieira MD Jun 05, 2017 16:50
[2017-06-05] MEDS: traMADol/ACETAMINOPHEN 37.5/325 1 TAB PO PRN (16:56)
[2017-06-05] MEDS: ATORVASTATIN 40 MG TAB PO SCH (22:15)
[2017-06-06] VITALS (10 sets, daily range): BP systolic 104–121; BP diastolic 65–77; PULSE 69–92; RESP 18–20; TEMP 97.4–98.5; O2SAT 98–100
[2017-06-06] MEDS: traMADol/ACETAMINOPHEN 37.5/325 1 TAB PO PRN (00:27)
[2017-06-06 06:20] LABS: AUTOMATED NEUTROPHIL # 6.5 TH/MM3 (1.8-7.7); BASOPHIL % 0.3 % (0.0-2.0); EOSINOPHIL # 0.1 TH/MM3 (0-0.4); EOSINOPHIL % 1.1 % (0.0-4.0); HEMATOCRIT 41.1 % (39.0-51.0); HEMOGLOBIN 13.9 GM/DL (13.0-17.0); LYMPH % 11.3 % (9.0-44.0); LYMPHOCYTE # 0.9 TH/MM3 (1.0-4.8); MEAN CORPUSCULAR HEMOGLOBIN 29.5 PG (27.0-34.0); MEAN CORPUSCULAR HGB CONC 33.9 % (32.0-36.0); MEAN PLATELET VOLUME 7.9 FL (7.0-11.0); MONO % 8.3 % (0.0-8.0); MONOCYTE # 0.7 TH/MM3 (0-0.9); PLATELET COUNT 328 TH/MM3 (150-450); RED BLOOD COUNT 4.72 MIL/MM3 (4.50-5.90); RED CELL DISTRIBUTION WIDTH 13.6 % (11.6-17.2); WHITE BLOOD COUNT 8.2 TH/MM3 (4.0-11.0)
[2017-06-06 06:37] LABS: AST (GOT) 65 U/L (15-37); BICARBONATE 28.1 MEQ/L (21.0-32.0); BLOOD UREA NITROGEN 11 MG/DL (7-18); CALCIUM 8.9 MG/DL (8.5-10.1); CHLORIDE 103 MEQ/L (98-107); CREATININE 1.46 MG/DL (0.60-1.30); GLOMERULAR FILTRATION RATE 69 ML/MIN (>89); GLUCOSE,RANDOM 78 MG/DL (74-106); SODIUM (NA) 138 MEQ/L (136-145)
[2017-06-06 06:40] LABS: ALKALINE PHOSPHATASE 84 U/L (45-117); ALT (GPT) 132 U/L (12-78); TOTAL BILIRUBIN ADULT 0.4 MG/DL (0.2-1.0); TOTAL PROTEIN 7.1 GM/DL (6.4-8.2)
[2017-06-06] MEDS: POTASSIUM CHLORIDE 8 MEQ CAP PO SCH (09:33)
[2017-06-06] MEDS: MINOXIDIL 2.5 MG TAB PO SCH (09:34)
[2017-06-06] MEDS: amLODIPine BESYLATE 5 MG TAB PO SCH (09:34)
[2017-06-06] MEDS: LABETALOL HCL 300 MG TAB PO SCH (09:34)
[2017-06-06] MEDS: FUROSEMIDE 40 MG TAB PO SCH (09:34)
[2017-06-06] MEDS: LEVOFLOXACIN 750 MG TAB PO SCH (09:34)
[2017-06-06] MEDS: ASPIRIN EC 81 MG TABEC PO SCH (09:34)
[2017-06-06] MEDS: SODIUM CHLORIDE 0.9% FLUSH 10 ML FLUSH IV FLUSH SCH (09:35)
--- NOTE | 2017-06-06 10:37 | HHI.NPPN ---
Subjective General Problems: Hypertension History of Present Illness Patient is a 31-year-old male with malignant hypertension and chronic kidney disease. Additional Remarks Patient is resting comfortably. No SOB. (Liz Jiang) Review of Systems Respiratory Respiratory Remarks No SOB (Liz Jiang) Cardiovascular Cardiac Remarks CP (Liz Jiang) Gastrointestinal GI Remarks No abdominal pain (Liz Jiang) Objective Data Data Vital Signs Date Time Temp Pulse Resp B/P (MAP) Pulse Ox O2 Delivery O2 Flow Rate FiO2 06/06/17 06:00 84 06/06/17 05:00 76 06/06/17 04:00 70 06/06/17 03:53 98.5 69 20 121/77 (92) 99 06/06/17 03:00 76 06/06/17 02:00 92 06/06/17 01:27 18 06/06/17 01:00 82 06/06/17 00:00 97.4 89 20 104/74 (84) 100 06/06/17 00:00 84 06/05/17 23:00 88 06/05/17 22:00 72 06/05/17 21:00 78 06/05/17 21:00 83 06/05/17 20:00 98.2 75 20 128/85 (99) 100 06/05/17 19:00 82 06/05/17 18:00 80 06/05/17 17:00 76 06/05/17 16:00 80 20 125/87 (100) 98 06/05/17 16:00 71 06/05/17 15:00 76 06/05/17 15:00 98.4 76 18 140/87 (104) 99 06/05/17 15:00 98.0 79 18 138/76 (96) 98 06/05/17 14:12 76 20 140/79 (99) 99 06/05/17 14:00 71 06/05/17 13:57 98.0 71 18 147/87 (107) 99 06/05/17 12:00 74 06/05/17 12:00 98.0 78 20 135/67 (89) 99 06/05/17 11:00 76 06/05/17 11:00 76 06/05/17 11:00 97.8 82 20 140/78 (98) 98 (Liz Jiang) -: 06/06/17 0503 06/06/17 0503 Physical Exam General Appearance: Well Developed, Well Nourished, No Acute Distress, Comfortable (Liz Jiang) Eyes Eye Exam: Pupils Equal (Liz Jiang) Throat Throat Exam: Oral Mucosa Taylors & Moist (Liz Jiang) Neck Neck Exam: Neck Supple (Liz Jiang) Pulmonary Resp Exam: Clear Bilaterally, Breath Sounds Equal (Liz Jiang) Cardiology CV Exam: Regular, Normal Sinus Rhythm (Liz Jiang) Gastrointestinal/Abdomen GI Exam: Soft, Non-Tender, Bowel Sounds Present (Liz Jiang) Extremeties Extremities Exam: No Edema (Liz Jiang) Neurologic Neuro Exam: Alert, Awake, Oriented (Liz Jiang) Psychiatric Psych Exam: Appropriate Responses (Liz Jiang) Assessment/Plan Discussed Condition With: Patient Problem List: (1) Acute kidney injury ICD Codes: N17.9 - Acute kidney failure, unspecified Plan: Acute kidney injury related to malignant hypertension Patient also with NSTEMI Renal US noted Given his chronic kidney disease and young age he need to aggressively control his blood pressure Blood pressure better controlled on minoxidil 2.5 mg daily, labetalol 300 mg twice a day ,and Amlodipine Creatinine at 1.46 today Losartan 50 mg daily ordered Stable from Nephrology stand point, will need close out patient follow up. (2) NSTEMI (non-ST elevated myocardial infarction) ICD Codes: I21.4 - Non-ST elevation (NSTEMI) myocardial infarction (3) Pneumonia ICD Codes: J18.9 - Pneumonia, unspecified organism Plan: continue antibiotics (4) Hypertension ICD Codes: I10 - Essential (primary) hypertension (Liz Jiang) Problem List: (1) Acute kidney injury ICD Codes: N17.9 - Acute kidney failure, unspecified Plan: Acute kidney injury related to malignant hypertension Patient also with NSTEMI Renal US noted Given his chronic kidney disease and young age he need to aggressively control his blood pressure Blood pressure better controlled on minoxidil 2.5 mg daily, labetalol 300 mg twice a day ,and Amlodipine Creatinine at 1.46 today Losartan 50 mg daily ordered Stable from Nephrology stand point, will need close out patient follow up. Patient need out patient follow up and better BP control. (2) NSTEMI (non-ST elevated myocardial infarction) ICD Codes: I21.4 - Non-ST elevation (NSTEMI) myocardial infarction (3) Pneumonia ICD Codes: J18.9 - Pneumonia, unspecified organism Plan: continue antibiotics (4) Hypertension ICD Codes: I10 - Essential (primary) hypertension (Rj Melo MD) Liz Jiang Jun 06, 2017 10:37 Rj Melo MD Jun 06, 2017 15:59
[2017-06-06] MEDS ORDERED: LOSARTAN 50 MG TAB PO SCH (10:45)
[2017-06-06] MEDS ORDERED: MINO2.5T PO (12:41)
[2017-06-06] MEDS ORDERED: LEVA750T9 PO (12:41)
[2017-06-06] MEDS ORDERED: POTA8CAP PO (12:41)
[2017-06-06] MEDS ORDERED: FURO40TA PO (12:41)
[2017-06-06] MEDS ORDERED: ATOR40TA16 PO (12:41)
[2017-06-06] MEDS ORDERED: COZA50TA PO (12:41)
[2017-06-06] MEDS ORDERED: LABE300T PO (12:41)
[2017-06-06] MEDS ORDERED: AMLO10TA2 PO (12:41)
[2017-06-06] MEDS ORDERED: ECASA81 PO (12:41)
--- NOTE | 2017-06-06 14:14 | HHI.DS ---
Discharge Summary Admission Date May 30, 2017 at 06:39 Discharge Date: Jun 06, 2017 Admitting Diagnosis severe bronchitis infiltrate , pericardiatis (1) CHF (congestive heart failure) ICD Code: I50.9 - Heart failure, unspecified Diagnosis: Principal (2) NSTEMI (non-ST elevated myocardial infarction) ICD Code: I21.4 - Non-ST elevation (NSTEMI) myocardial infarction Diagnosis: Principal (3) Acute kidney injury ICD Code: N17.9 - Acute kidney failure, unspecified Diagnosis: Principal (4) Hypertension ICD Code: I10 - Essential (primary) hypertension Diagnosis: Principal (5) Pneumonia ICD Code: J18.9 - Pneumonia, unspecified organism Diagnosis: Principal Procedures cardiac cath Brief History - From Admission Mr. Horne is a pleasant 31 year old male with no significant medical history who presents to the emergency department today due to to worsening shortness of breath. For the last month or so, patient has been experiencing shortness of breath even with short distance walking. He also reports bilateral leg swelling and orthopnea. He cannot sleep in bed flat due to dyspnea. He denies any chest pain. However he has been experiencing right upper quadrant abdominal pain for the last 1 week or so. He reports cough with sung colored sputum production. No fever or chills. No nausea vomiting or diaphoresis. No nighttime sweats. No weight loss. Denies any changes in bowel or bladder habit. Further discussion reveals that he likely has had undiagnosed, untreated hypertension for a long time. He also admit to not eating well. Of note, patient had flu in February. CT PE study does indicate possibility of infectious etiology for nodular ground glass opacity. On arrival, HR 128, RR 18 , BP 208/145, 97% on room air. CBC/BMP: 06/06/17 0503 06/06/17 0503 Significant Findings Laboratory Tests Test 06/04/17 18:07 06/05/17 05:23 06/06/17 05:03 Creatinine 1.56 MG/DL (0.60-1.30) 1.40 MG/DL (0.60-1.30) 1.46 MG/DL (0.60-1.30) Random Glucose 113 MG/DL (74-106) Estimat Glomerular Filtration Rate 64 ML/MIN (>89) 72 ML/MIN (>89) 69 ML/MIN (>89) Potassium Level 3.4 MEQ/L (3.5-5.1) Neutrophils (%) (Auto) 79.0 % (16.0-70.0) Monocytes (%) (Auto) 8.3 % (0.0-8.0) Lymphocytes # (Auto) 0.9 TH/MM3 (1.0-4.8) Albumin 3.0 GM/DL (3.4-5.0) Aspartate Amino Transf (AST/SGOT) 65 U/L (15-37) Alanine Aminotransferase (ALT/SGPT) 132 U/L (12-78) PE at Discharge GENERAL: This is a well-nourished, well-developed patient, in no apparent distress. CARDIOVASCULAR: Regular rate and rhythm without murmurs, gallops, or rubs. RESPIRATORY: Clear to auscultation. Breath sounds equal bilaterally. No wheezes , rales, or rhonchi. GASTROINTESTINAL: Abdomen soft, non-tender, nondistended. Normal active bowel sounds MUSCULOSKELETAL: Extremities without clubbing, cyanosis, or edema. NEURO: Alert & Oriented x4 to person, place, time, situation. Moves all ext x4 Hospital Course Mr. Horne is a 31-year-old male. He came in secondary to severe bronchitis symptoms. He is also been having lower extremity edema. Workup shows that he has congestive heart failure which is new. Cardiac evaluation showed no need for stents that he may have had a myocardial infarction. Other etiologies for his cardiomyopathy could be a viral cardiomyopathy or chronic hypertension related cardiomyopathy. Blood pressure treatments have been started at this visit and presently his blood pressures are under better control. He had acute kidney injury on arrival and still has some mild evidence of chronic kidney disease which would be expected with his degree of cardiomyopathy. Ejection fraction during this hospital stay is approximately 40%. New treatments have been started during this hospitalization. Patient has been cleared by cardiology for discharge to home and is medically clear for discharge home today. Pt Condition on Discharge: Stable Discharge Disposition: Discharge Home Discharge Time: <= 30 minutes Discharge Instructions DIET: Follow Instructions for: Heart Healthy Diet Activities you can perform: See Additionl Instruction Other Activity Instructions: No heavy lifting or intense exertion Follow up Referrals: Cardiology - 2 Weeks PCP Follow-up - 2 Weeks New Medications: Amlodipine (Amlodipine) 10 Mg Tab 10 MG PO DAILY for Blood Pressure Management, #30 TAB [address] (Aspirin DR) 81 Mg Tabdr 81 MG PO DAILY for Blood Clot Prevention, #30 TAB Atorvastatin (Atorvastatin) 40 Mg Tab 40 MG PO HS for Cholesterol Management, #30 TAB Furosemide (Furosemide) 40 Mg Tab 40 MG PO DAILY for Swelling Management, #30 TAB Labetalol (Labetalol) 300 Mg Tab 300 MG PO Q12HR for Blood Pressure Management, #60 TAB Levofloxacin (Levaquin) 750 Mg Tablet 750 MG PO DAILY for Infection, #3 TAB Losartan (Cozaar) 50 Mg Tab 50 MG PO DAILY for Blood Pressure Management, #30 TAB Minoxidil (Minoxidil) 2.5 Mg Tab 2.5 MG PO DAILY for Vasodilator, #30 TAB Potassium Chloride ER (Potassium Chloride ER) 8 Meq Cap 8 MEQ PO DAILY for Potassium Replacement, #30 CAP Manuel Novak MD Jun 06, 2017 14:13
--- NOTE | 2017-06-06 17:16 | PD.CARD.PN ---
Subjective Subjective Remarks alert in nad, denies chest pain Objective Vital Signs / I&O GENERAL: SKIN: Warm and dry. HEAD: Normocephalic. EYES: No scleral icterus. No injection or drainage. NECK: Supple, trachea midline. No JVD or lymphadenopathy. CARDIOVASCULAR: Regular rate and rhythm without murmurs, gallops, or rubs. RESPIRATORY: Breath sounds equal bilaterally. No accessory muscle use. GASTROINTESTINAL: Abdomen soft, non-tender, nondistended. MUSCULOSKELETAL: No cyanosis, or edema. BACK: Nontender without obvious deformity. No CVA tenderness. Vital Signs Date Time Temp Pulse Resp B/P (MAP) Pulse Ox O2 Delivery O2 Flow Rate FiO2 06/06/17 12:44 85 18 113/65 (81) 99 06/06/17 11:27 21 06/06/17 08:00 75 06/06/17 08:00 97.8 75 20 110/70 (83) 98 06/06/17 06:00 84 06/06/17 05:00 76 06/06/17 04:00 70 06/06/17 03:53 98.5 69 20 121/77 (92) 99 06/06/17 03:00 76 06/06/17 02:00 92 06/06/17 01:27 18 06/06/17 01:00 82 06/06/17 00:00 97.4 89 20 104/74 (84) 100 06/06/17 00:00 84 06/05/17 23:00 88 06/05/17 22:00 72 06/05/17 21:00 78 06/05/17 21:00 83 06/05/17 20:00 98.2 75 20 128/85 (99) 100 06/05/17 19:00 82 06/05/17 18:00 80 I/O 06/05/17 06/05/17 06/05/17 06/06/17 06/06/17 06/06/17 07:00 15:00 23:00 07:00 15:00 23:00 Intake Total 240 ml 240 ml 460 ml 240 ml Output Total 600 ml 800 ml 450 ml Balance -360 ml 240 ml -340 ml -210 ml Intake Oral 240 ml 240 ml 460 ml 240 ml Output Urine Total 600 ml 800 ml 450 ml # Bowel Movements 0 0 1 Physical Exam GENERAL: SKIN: Warm and dry. HEAD: Normocephalic. EYES: No scleral icterus. No injection or drainage. NECK: Supple, trachea midline. No JVD or lymphadenopathy. CARDIOVASCULAR: Regular rate and rhythm without murmurs, gallops, or rubs. RESPIRATORY: Breath sounds equal bilaterally. No accessory muscle use. GASTROINTESTINAL: Abdomen soft, non-tender, nondistended. MUSCULOSKELETAL: No cyanosis, or edema. BACK: Nontender without obvious deformity. No CVA tenderness. Laboratory Laboratory Tests Test 06/06/17 05:03 White Blood Count 8.2 TH/MM3 Red Blood Count 4.72 MIL/MM3 Hemoglobin 13.9 GM/DL Hematocrit 41.1 % Mean Corpuscular Volume 87.0 FL Mean Corpuscular Hemoglobin 29.5 PG Mean Corpuscular Hemoglobin Concent 33.9 % Red Cell Distribution Width 13.6 % Platelet Count 328 TH/MM3 Mean Platelet Volume 7.9 FL Neutrophils (%) (Auto) 79.0 % Lymphocytes (%) (Auto) 11.3 % Monocytes (%) (Auto) 8.3 % Eosinophils (%) (Auto) 1.1 % Basophils (%) (Auto) 0.3 % Neutrophils # (Auto) 6.5 TH/MM3 Lymphocytes # (Auto) 0.9 TH/MM3 Monocytes # (Auto) 0.7 TH/MM3 Eosinophils # (Auto) 0.1 TH/MM3 Basophils # (Auto) 0.0 TH/MM3 CBC Comment DIFF FINAL Differential Comment Blood Urea Nitrogen 11 MG/DL Creatinine 1.46 MG/DL Random Glucose 78 MG/DL Total Protein 7.1 GM/DL Albumin 3.0 GM/DL Calcium Level 8.9 MG/DL Alkaline Phosphatase 84 U/L Aspartate Amino Transf (AST/SGOT) 65 U/L Alanine Aminotransferase (ALT/SGPT) 132 U/L Total Bilirubin 0.4 MG/DL Sodium Level 138 MEQ/L Potassium Level 3.7 MEQ/L Chloride Level 103 MEQ/L Carbon Dioxide Level 28.1 MEQ/L Anion Gap 7 MEQ/L Estimat Glomerular Filtration Rate 69 ML/MIN Assessment and Plan Problem List: (1) CHF (congestive heart failure) ICD Codes: I50.9 - Heart failure, unspecified (2) Hypertension ICD Codes: I10 - Essential (primary) hypertension (3) Pneumonia ICD Codes: J18.9 - Pneumonia, unspecified organism (4) NSTEMI (non-ST elevated myocardial infarction) ICD Codes: I21.4 - Non-ST elevation (NSTEMI) myocardial infarction (5) Acute kidney injury ICD Codes: N17.9 - Acute kidney failure, unspecified Assessment and Plan 1.) CAD - continue aspirin, lipitor. 2.) Cardiomyopathy - continue minoxidil, labetolol, norvasc, lasix, renal following Dax Spain MD Jun 06, 2017 17:16
== END 2017-06-06 15:42 | disposition home or self-care (01) | DRG 280 ==
LOC: NEPE 03:57 → NEDA 06:39 → HCIS 12:53
PROVIDERS: ADMIT Hospitalist; ATTEND Hospitalist
PROC: B2151ZZ Fluoroscopy of Left Heart using Low Osmolar Contrast (ICD-10-PCS; 2017-06-05)
PROC: B2111ZZ Fluoroscopy of Multiple Coronary Arteries using Low Osmolar Contrast (ICD-10-PCS; 2017-06-05)
PROC: 4A023N8 Measurement of Cardiac Sampling and Pressure, Bilateral, Percutaneous Approach (ICD-10-PCS; principal; 2017-06-05 12:15)
DX: I13.0 Hypertensive heart and chronic kidney disease with heart failure and stage 1 through stage 4 chronic kidney disease, or unspecified chronic kidney disease (principal); I21.A1 Myocardial infarction type 2; J18.9 Pneumonia, unspecified organism; N17.9 Acute kidney failure, unspecified; I50.21 Acute systolic (congestive) heart failure; I11.0 Hypertensive heart disease with heart failure; I42.9 Cardiomyopathy, unspecified; N18.9 Chronic kidney disease, unspecified; R00.0 Tachycardia, unspecified; F19.10 Other psychoactive substance abuse, uncomplicated; I25.10 Atherosclerotic heart disease of native coronary artery without angina pectoris; I27.20 Pulmonary hypertension, unspecified
CPT/HCPCS: 71275; 76705; 76775; 80048; 80053; 80061; 80307; 81001; 82088; 82550; 82552; 82570; 82810; 83036; 83690; 83735; 83880; 84100; 84156; 84244; 84484; 85025; 85379; 86021; 86038; 86703; 87205; 87804; 93005; 93306; 93460; 94640; 94664; 99152; 99285; C1769; C1893; J0131; J1644; J1650; J1940; J1956; J2250; J2930; J3010; J7030; J7644; Q9967